=== PATIENT | female | born 1965 ===

== ENCOUNTER 2017-04-16 14:54 | Emergency (ER) | payer MEDICAID ==
[2017-04-16 15:15] VITALS: RESP 18; TEMP 98.3; O2SAT 97
--- NOTE | 2017-04-16 15:38 | C.PDOC ---
History Of Present Illness 51 yr old female with PMHx of HTN, borderline diabetes and depression, presents to the ER with complaints of chronic body pain. Patient states the pain has worsened over the past 3 days. As per patient significant other, the patient is always complaining of pain. Patient also reports of headache. Patient states she takes 2 ibuprofen when she feels the pain, last dose of medication was today at 9am. Patient denies fever, nausea, vomiting or abdominal pain. Time Seen by Provider: 04/16/17 15:05 Chief Complaint (Nursing): Back Pain History Per: Patient History/Exam Limitations: no limitations Onset/Duration Of Symptoms: Persistent (Chronic ), Worse Since (3 days) Past Medical History Reviewed: Historical Data, Nursing Documentation, Vital Signs Vital Signs: Last Vital Signs Temp 98.3 F 04/16/17 15:07 Pulse 92 H 04/16/17 15:07 Resp 18 04/16/17 15:07 BP 131/86 04/16/17 15:07 Pulse Ox 97 04/16/17 15:41 - Medical History PMH: Depression, HTN Family History: States: No Known Family Hx - Social History Hx Alcohol Use: No Hx Substance Use: No - Immunization History Hx Tetanus Toxoid Vaccination: No Hx Influenza Vaccination: Yes Hx Pneumococcal Vaccination: No Review Of Systems Except As Marked, All Systems Reviewed And Found Negative. Constitutional: Positive for: Other ((+) Chronic body pain). Negative for: Fever Gastrointestinal: Negative for: Nausea, Vomiting, Abdominal Pain Neurological: Positive for: Headache Physical Exam - Physical Exam Appears: Non-toxic, No Acute Distress Skin: Warm, Dry Head: Atraumatic, Normacephalic Oral Mucosa: Moist Chest: Symmetrical, No Tenderness Cardiovascular: Rhythm Regular, No Murmur Respiratory: Normal Breath Sounds, No Rales, No Rhonchi, No Stridor, No Wheezing Extremity: Normal ROM, Tenderness (on palpation, diffuse) Pulses: Left Radial: Normal, Right Radial: Normal Neurological/Psych: Oriented x3, Normal Speech, Normal Motor ED Course And Treatment O2 Sat by Pulse Oximetry: 97 (RA) Pulse Ox Interpretation: Normal Medical Decision Making Medical Decision Making: PLAN: * Motrin PO * Tylenol PO Disposition Counseled Patient/Family Regarding: Diagnosis, Need For Followup, Rx Given - Disposition Disposition: HOME/ ROUTINE Disposition Time: 15:57 Condition: STABLE Prescriptions: Ibuprofen [Motrin] 600 mg PO TID #15 tab Instructions: Muscle Spasm (ED) Forms: Gen Discharge Inst Slovak - POA Present On Arrival: None - Clinical Impression Clinical Impression: Chronic pain - Scribe Statement The provider has reviewed the documentation as recorded by the Alexandraibalicia Gonzalez Provider Attestation: All medical record entries made by the Alexandraibalicia were at my direction and personally dictated by me. I have reviewed the chart and agree that the record accurately reflects my personal performance of the history, physical exam, medical decision making, and the department course for this patient. I have also personally directed, reviewed, and agree with the discharge instructions and disposition.
[2017-04-16 16:15] VITALS: BP 128/84; PULSE 80
== END 2017-04-16 16:15 | disposition home or self-care (01) ==
LOC: C.ER 14:54
DX: G89.29 Other chronic pain (principal)

== ENCOUNTER 2017-06-02 10:30 | Emergency (ER) | payer MEDICAID ==
[2017-06-02 10:32] VITALS: BMI 33.3
[2017-06-02 10:36] VITALS: RESP 18; TEMP 98.9; O2SAT 98
--- NOTE | 2017-06-02 11:45 | C.PDOC ---
History Of Present Illness 51 yo female come in for evaluation of left breast pain gradually developed for past 3-4 days. Otherwise, pt denies fever, chills, known direct trauma or injury , headache, dizziness, neck pain, CP, SOB, dyspnea, diaphoresis, palpitation, cough, denies B/L breast skin changes or nipple discharges, denies previous breast pathology. Ambulate to ED for evaluation ,not in any apparent distress. Time Seen by Provider: 06/02/17 11:17 Chief Complaint (Nursing): Breast Problem History Per: Patient Past Medical History Reviewed: Historical Data, Nursing Documentation, Vital Signs Vital Signs: Last Vital Signs Temp 98.9 F 06/02/17 10:33 Pulse 96 H 06/02/17 10:33 Resp 18 06/02/17 10:33 BP 121/88 06/02/17 10:33 Pulse Ox 98 06/02/17 10:33 - Medical History PMH: Depression, HTN Family History: States: No Known Family Hx - Social History Hx Alcohol Use: No Hx Substance Use: No - Immunization History Hx Tetanus Toxoid Vaccination: No Hx Influenza Vaccination: Yes Hx Pneumococcal Vaccination: No Review Of Systems Except As Marked, All Systems Reviewed And Found Negative. Constitutional: Negative for: Fever, Chills Eyes: Negative for: Vision Change ENT: Negative for: Throat Pain, Throat Swelling Cardiovascular: Negative for: Chest Pain, Palpitations Respiratory: Negative for: Cough, Shortness of Breath, Wheezing Gastrointestinal: Negative for: Nausea, Vomiting, Abdominal Pain Musculoskeletal: Positive for: Other (Left breast pain). Negative for: Neck Pain, Back Pain Skin: Negative for: Rash, Bruising Neurological: Negative for: Weakness, Numbness, Altered Mental Status, Headache , Dizziness Physical Exam - Physical Exam Appears: Well, Non-toxic, No Acute Distress Skin: Normal Color, Warm, Dry, No Rash, No Ecchymosis Eye(s): bilateral: PERRL Nose: No Flaring, No Discharge Oral Mucosa: Moist Throat: No Erythema, No Exudate, No Drooling Neck: Supple Cardiovascular: Rhythm Regular Respiratory: No Decreased Breath Sounds, No Accessory Muscle Use, No Stridor, No Wheezing, Other (Left breast: mild reproducible tenderness over posterior sapect at 6 o'clock, no skin changes, no nipple discharges or changes. No erythema, no palpable masses.) Gastrointestinal/Abdominal: Soft, No Tenderness, No Distention, No Guarding Back: No CVA Tenderness Extremity: Normal ROM, No Pedal Edema, No Deformity, No Swelling Neurological/Psych: Oriented x3, Normal Speech ED Course And Treatment O2 Sat by Pulse Oximetry: 98 Pulse Ox Interpretation: Normal Progress Note: On re-evaluation, pt is afebrile, hemodynamicaly stable. non- toxic. PulsEOx 98% RA. ENT: no acute findings. neck: Supple, (-) JVD. Lungs : CTA B/L, BS equal B/L. B/L breast: mild tenderness at 6 o'clock left breast, no skin changes, no erythema, no palpable mass, no nipple changes or discharges. CVS: (+)S1S2, reg. Abd: benign. Pt has clinical findings c/w left breast tenderness. Pt advised to F/u with PMD, NUTRITION PARTNER for mammogramm and further eval and tx of breast pain. Pt understand and agrees with discharges. Disposition Counseled Patient/Family Regarding: Diagnosis, Need For Followup, Rx Given - Disposition Referrals: Clemente Ortega, DHARMESH, [facility] [Advanced Practice Nurse] - Disposition: HOME/ ROUTINE Disposition Time: 11:27 Condition: STABLE Additional Instructions: FOLLOW UP WITH PMD, NUTRITION PARTNER IN 2-3 DAYS FOR RE-EVALUATION AND MAMMOGRAMM SUPPORTING BRA RETURN IF ANY WORSENING OR NEW CHANGES. Prescriptions: Ibuprofen [Motrin Tab] 600 mg PO Q6 #20 tab Instructions: Breast Mass (ED) Print Language: BULGARIAN - Clinical Impression Clinical Impression: Pain of breast
[2017-06-02 12:16] VITALS: BP 120/75; PULSE 85
== END 2017-06-02 12:30 | disposition home or self-care (01) ==
LOC: C.ER 10:30
DX: N64.4 Mastodynia (principal)

== ENCOUNTER 2017-07-27 09:51 | Emergency (ER) | payer MEDICAID ==
[2017-07-27 09:52] VITALS: BMI 33.3
[2017-07-27] MEDS ORDERED: Sodium Chloride 0.9% 1,000 ML IV ONE (10:34)
--- NOTE | 2017-07-27 10:37 | C.PDOC ---
History Of Present Illness 51 year old female, whose PMHx includes Depression, presents to the ED for evaluation of epigastric abdominal pain which began around 1 week ago. Patient states the pain radiates toward her chest. She denies fever, chills, and diarrhea and has no other complaints at this time. Time Seen by Provider: 07/27/17 10:32 Chief Complaint (Nursing): Abdominal Pain History Per: Patient History/Exam Limitations: no limitations Onset/Duration Of Symptoms: Days (1 week) Current Symptoms Are (Timing): Still Present Location Of Pain/Discomfort: Epigastric Radiation Of Pain To:: Chest Quality Of Discomfort: "Pain" Associated Symptoms: denies: Fever, Chills, Diarrhea Additional History Per: Patient Abnormal Vaginal Bleeding: No Past Medical History Reviewed: Historical Data, Nursing Documentation, Vital Signs Vital Signs: Last Vital Signs Temp 98.3 F 07/27/17 12:17 Pulse 77 07/27/17 13:44 Resp 16 07/27/17 13:44 BP 121/85 07/27/17 13:44 Pulse Ox 96 07/27/17 15:30 - Medical History PMH: Depression, HTN Surgical History: No Surg Hx Family History: States: Unknown Family Hx - Social History Hx Alcohol Use: No Hx Substance Use: No - Immunization History Hx Tetanus Toxoid Vaccination: No Hx Influenza Vaccination: Yes Hx Pneumococcal Vaccination: No Review Of Systems Constitutional: Negative for: Fever, Chills Cardiovascular: Positive for: Chest Pain Gastrointestinal: Positive for: Abdominal Pain (epigastric ). Negative for: Diarrhea Physical Exam - Physical Exam Appears: Non-toxic, No Acute Distress Skin: Normal Color, Warm, Dry Head: Atraumatic, Normacephalic Eye(s): bilateral: Normal Inspection Oral Mucosa: Moist Neck: Supple Chest: Symmetrical, No Deformity, No Tenderness Cardiovascular: Rhythm Regular, No Murmur Respiratory: Normal Breath Sounds, No Rales, No Rhonchi, No Wheezing Gastrointestinal/Abdominal: Soft, Tenderness (epigastric ), No Guarding, No Rebound Extremity: Normal ROM, Capillary Refill (less than 2 seconds ) Neurological/Psych: Oriented x3, Normal Speech, Normal Cognition Gait: Steady ED Course And Treatment - Laboratory Results Result Diagrams: 07/27/17 11:13 07/27/17 11:13 ECG: Interpreted By Me, Viewed By Me ECG Rhythm: Sinus Rhythm Interpretation Of ECG: Normal Sinus Rhythm at rate 83bpm. No ST/T wave changes. Rate From EC O2 Sat by Pulse Oximetry: 96 (on RA) Pulse Ox Interpretation: Normal Medical Decision Making Medical Decision Making: ro gastritis pud, pancreatitis, atypical cardiac Progress: Bloodwork, urinalysis, EKG ordered. Protonix IVP, Zofran IVP, and IV Fluids administered. On reassessment, patient is resting comfortably, showing no signs of distress and reports an improvement in her abdominal pain. Patient will be discharged, as per her request. pt with atypical pain. ekg wnl x 1 week pain, trop neg. us neg for gallbladder pathology. no lower abd ttp. strict return precautions advised. Disposition - Disposition Referrals: [facility] [Outside] Darryl Buenrostro MD [Staff Provider] - Nestor Franklin MD [Staff Provider] - Disposition: HOME/ ROUTINE Disposition Time: 15:29 Condition: STABLE Additional Instructions: please follow up with specialist and your doctor. return to er with worsening symptoms or concerns. Prescriptions: Famotidine [Pepcid] 20 mg PO DAILY #20 tab Instructions: Chest Pain (ED), Acute Abdominal Pain (ED) Forms: [employer] (Nepali) - Clinical Impression Clinical Impression: Abdominal pain - Scribe Statement The provider has reviewed the documentation as recorded by the Scribe (Keesha Toro) Provider Attestation: All medical record entries made by the Scribe were at my direction and personally dictated by me. I have reviewed the chart and agree that the record accurately reflects my personal performance of the history, physical exam, medical decision making, and the department course for this patient. I have also personally directed, reviewed, and agree with the discharge instructions and disposition.
[2017-07-27] MEDS ORDERED: Sodium Chloride 0.9% 1,000 ML ONE (10:50)
[2017-07-27 11:17] LABS: BASO # 0.1 K/uL (0.0-0.2); BASO % 0.7 % (0.0-2.0); EOS # 0.1 K/uL (0.0-0.7); EOS % 1.3 % (0.0-4.0); HEMOGLOBIN 13.1 g/dL (11.0-16.0); LYMPH # 1.7 K/uL (1.0-4.3); LYMPH % 16.3 % (20.0-40.0); MEAN CELL VOLUME 85.3 fL (81.0-99.0); MEAN CORPUSCULAR HEMOGLOBIN 28.5 pg (27.0-31.0); MEAN CORPUSCULAR HGB CONC 33.5 g/dL (33.0-37.0); MEAN PLATELET VOLUME 9.8 fL (7.2-11.7); MONO # 0.7 K/uL (0.0-0.8); MONO % 6.6 % (0.0-10.0); NEUT # 7.8 K/uL (1.8-7.0); NEUT % 75.1 % (50.0-75.0); NRBC % 0.1 % (0.0-2.0); RBC 4.58 Mil/uL (3.80-5.20); RED CELL DISTRIBUTION WIDTH 14.8 % (11.5-14.5); WHITE BLOOD COUNT 10.4 K/uL (4.8-10.8)
[2017-07-27 11:23] LABS: HCG,QUALITATIVE URINE NEGATIVE (NEGATIVE)
[2017-07-27 11:25] LABS: PROTHROMBIN TIME 11.7 SECONDS (9.7-12.2)
[2017-07-27 11:27] LABS: SQUAMOUS EPITHIAL 1 /hpf (0-5); URINE BACTERIA RARE (<OCC); URINE BILIRUBIN NEGATIVE (NEGATIVE); URINE BLOOD NEGATIVE (NEGATIVE); URINE CLARITY Clear (Clear); URINE COLOR Straw (YELLOW); URINE GLUCOSE (UA) NORMAL (Normal); URINE LEUKOCYTE ESTERASE NEG Leu/uL (Negative); URINE NITRATE NEGATIVE (NEGATIVE); URINE PROTEIN NEGATIVE (NEGATIVE); URINE UROBILINOGEN NORMAL mg/dL (0.2-1.0)
[2017-07-27 11:38] LABS: ALT/SGPT 52 U/L (9-52); AST/SGOT 27 U/L (14-36); BLOOD UREA NITROGEN 9 mg/dL (7-17); CALCIUM 8.4 mg/dl (8.6-10.4); GFR AFRICAN-AMERICAN > 60; GFR NON-AFRICAN AMERICAN > 60; LIPASE 85 U/L (23-300)
[2017-07-27 12:18] VITALS: TEMP 98.3
--- NOTE | 2017-07-27 12:48 | RAD ---
HISTORY: abd pain COMPARISON: None available. TECHNIQUE: Chest PA and lateral FINDINGS: Examination limited by habitus. LUNGS: No focal consolidation. Please note that chest x-ray has limited sensitivity for the detection of pulmonary masses. PLEURA: No significant pleural effusion identified. No definite pneumothorax . CARDIOVASCULAR: The cardiomediastinal silhouette appears within normal limits of size. OSSEOUS STRUCTURES: No acute osseous abnormality identified. VISUALIZED UPPER ABDOMEN: Unremarkable. OTHER FINDINGS: None. IMPRESSION: No focal consolidation, significant pleural effusion, or definite pneumothorax identified.
--- NOTE | 2017-07-27 13:14 | US ---
HISTORY: upper abd pain COMPARISON: None available. TECHNIQUE: Sonographic evaluation of the abdomen. FINDINGS: LIVER: Measures 20.0 cm in sagittal dimension. Echogenic liver may be seen in setting of hepatic parenchymal disease or fatty infiltration. No focal hepatic mass identified. The main portal vein appears patent with normal directional flow. No intrahepatic bile duct dilatation. GALLBLADDER: No gallstones. No gallbladder wall thickening. Negative sonographic Rodríguez's sign as assessed by the client relations specialist. COMMON BILE DUCT: Measures 3 mm. PANCREAS: Not well visualized. RIGHT KIDNEY: Measures 11.7 x 3.8 x 4.3cm. No obstructing calculus or hydronephrosis identified. LEFT KIDNEY: Measures 11.5 x 5.4 x 5.9 cm. No obstructing calculus or hydronephrosis identified. SPLEEN: Measures approximately 9.2 cm AORTA: Limited views appear unremarkable. IVC: Limited views appear unremarkable. OTHER FINDINGS: None. IMPRESSION: Hepatomegaly. Echogenic liver may be seen in setting of hepatic parenchymal disease or fatty infiltration.
[2017-07-27 13:44] VITALS: BP 121/85; PULSE 77; RESP 16
[2017-07-27 14:35] VITALS: O2SAT 96
--- NOTE | 2017-07-29 23:18 | CARD ---
APPROVED REPORT EKG Measurement Heart [id number] <Conclusion> Normal sinus rhythm Normal ECG
== END 2017-07-27 14:07 | disposition home or self-care (01) ==
LOC: C.ER 09:51
DX: R10.9 Unspecified abdominal pain (principal); I10 Essential (primary) hypertension
CPT/HCPCS: 71046; 76700; 80053; 81001; 83690; 84484; 84703; 85025; 85610; 85730; 96374; 96375; 99285; C9113; J2405; J7040

== ENCOUNTER 2017-12-07 00:01 | Emergency (ER) | payer MEDICAID ==
[2017-12-07 00:01] VITALS: BMI 33.3
[2017-12-07 00:28] VITALS: O2SAT 97
[2017-12-07] MEDS ORDERED: Sodium Chloride 0.9% 1,000 ML IV ONE (00:42)
--- NOTE | 2017-12-07 00:44 | C.PDOC ---
History Of Present Illness 52 year old female presents to the ED for evaluation of chest pain. Patient had episodes of vomiting in the ED. She denies fever, chills. Chief Complaint (Nursing): Chest Pain History Per: Patient History/Exam Limitations: no limitations Onset/Duration Of Symptoms: Hrs Current Symptoms Are (Timing): Still Present Quality: "Pain" Additional History Per: Patient Past Medical History Reviewed: Historical Data, Nursing Documentation, Vital Signs Vital Signs: Last Vital Signs Temp 97.6 F 12/07/17 03:08 Pulse 79 12/07/17 03:08 Resp 18 12/07/17 03:08 BP 126/78 12/07/17 03:08 Pulse Ox 97 12/07/17 03:27 - Medical History PMH: Depression, HTN Surgical History: No Surg Hx Family History: States: Unknown Family Hx - Social History Hx Alcohol Use: No Hx Substance Use: No - Immunization History Hx Tetanus Toxoid Vaccination: No Hx Influenza Vaccination: Yes Hx Pneumococcal Vaccination: No Review Of Systems Constitutional: Negative for: Fever, Chills Cardiovascular: Positive for: Chest Pain Gastrointestinal: Positive for: Vomiting Physical Exam - Physical Exam Appears: Non-toxic, Other (in distress due to vomiting ) Skin: Normal Color, Warm, Dry Head: Atraumatic, Normacephalic Eye(s): bilateral: Normal Inspection Oral Mucosa: Moist Neck: Supple Chest: Symmetrical, No Deformity, No Tenderness Cardiovascular: Rhythm Regular, No Murmur Respiratory: Normal Breath Sounds, No Rales, No Rhonchi, No Wheezing Gastrointestinal/Abdominal: Soft, Tenderness (epigastric and right upper quadrant ), No Guarding, No Rebound Extremity: Normal ROM, Capillary Refill (less than 2 seconds ) Neurological/Psych: Oriented x3, Normal Speech, Normal Cognition ED Course And Treatment - Laboratory Results Result Diagrams: 12/07/17 00:58 12/07/17 00:58 ECG: Interpreted By Me, Viewed By Me ECG Rhythm: Sinus Rhythm, Nonspecific Changes ECG Interpretation: No Acute Changes, Abnormal Interpretation Of ECG: NSR, non-spc-T wave changes. Rate From EC O2 Sat by Pulse Oximetry: 97 (on RA) Pulse Ox Interpretation: Normal Progress Note: Bloodwork, UA, CT A/P, EKG ordered. Protonix IVP, Reglan IV and IV Fluids administered. Disposition Counseled Patient/Family Regarding: Diagnosis - Disposition Referrals: Clemente Ortega, DHARMESH, [facility] [employer] [Family Provider] - Disposition: HOME/ ROUTINE Disposition Time: 05:44 Condition: STABLE Prescriptions: Famotidine [Pepcid] 20 mg PO BID #20 tab Instructions: Gastritis, Nausea and Vomiting, Adult (DC), Alcohol Poisoning (DC ) Forms: [employer] (Georgian), Gen Discharge Inst Irish - POA Present On Arrival: None - Clinical Impression Clinical Impression: Gastritis, Alcohol abuse - Scribe Statement The provider has reviewed the documentation as recorded by the Scribe (Keesha Toro) Provider Attestation: All medical record entries made by the Scribe were at my direction and personally dictated by me. I have reviewed the chart and agree that the record accurately reflects my personal performance of the history, physical exam, medical decision making, and the department course for this patient. I have also personally directed, reviewed, and agree with the discharge instructions and disposition.
[2017-12-07] MEDS ORDERED: Sodium Chloride 0.9% 0 ML ONE (00:56)
[2017-12-07 01:01] LABS: BASO # 0.1 K/uL (0.0-0.2); BASO % 0.5 % (0.0-2.0); EOS % 0.2 % (0.0-4.0); HEMOGLOBIN 12.5 g/dL (11.0-16.0); LYMPH # 2.1 K/uL (1.0-4.3); LYMPH % 15.8 % (20.0-40.0); MEAN CORPUSCULAR HEMOGLOBIN 28.1 pg (27.0-31.0); MEAN CORPUSCULAR HGB CONC 33.5 g/dL (33.0-37.0); MEAN PLATELET VOLUME 9.8 fL (7.2-11.7); MONO # 0.9 K/uL (0.0-0.8); NEUT # 10.3 K/uL (1.8-7.0); NEUT % 76.5 % (50.0-75.0); RBC 4.45 Mil/uL (3.80-5.20); RED CELL DISTRIBUTION WIDTH 14.5 % (11.5-14.5); WHITE BLOOD COUNT 13.5 K/uL (4.8-10.8)
[2017-12-07] MEDS ORDERED: Sodium Chloride 0.9% 1,000 ML ONE (01:08)
[2017-12-07 01:14] LABS: ALB/GLOB RATIO 1.1 (1.0-2.1); ALBUMIN 4.3 g/dL (3.5-5.0); ALT/SGPT 60 U/L (9-52); AST/SGOT 41 U/L (14-36); BLOOD UREA NITROGEN 7 mg/dL (7-17); CALCIUM 8.9 mg/dl (8.6-10.4); GFR AFRICAN-AMERICAN > 60; GFR NON-AFRICAN AMERICAN > 60; LIPASE 80 U/L (23-300)
[2017-12-07] MEDS ORDERED: Iodixanol 320 MG/ML 100 ML BOTTLE IV ONE (01:50)
[2017-12-07 03:36] LABS: URINE BILIRUBIN NEGATIVE (NEGATIVE); URINE BLOOD NEGATIVE (NEGATIVE); URINE CLARITY Clear (Clear); URINE COLOR Colorless (YELLOW); URINE GLUCOSE (UA) NORMAL (Normal); URINE LEUKOCYTE ESTERASE NEG Leu/uL (Negative); URINE PROTEIN NEGATIVE (NEGATIVE); URINE UROBILINOGEN NORMAL mg/dL (0.2-1.0)
--- NOTE | 2017-12-07 04:09 | CT ---
EXAM: CT Abdomen and Pelvis With Intravenous Contrast CLINICAL HISTORY: 52 years old, female; Pain; Abdominal pain; Additional info: Upper abd pain/ vomiting TECHNIQUE: Axial computed tomography images of the abdomen and pelvis with intravenous contrast. All CT scans at this facility use one or more dose reduction techniques, viz.: automated exposure control; ma/kV adjustment per patient size (including targeted exams where dose is matched to indication; i.e. head); or iterative reconstruction technique. Coronal and sagittal reformatted images were created and reviewed. CONTRAST: 100 mL of [id number] administered intravenously. COMPARISON: No relevant prior studies available. FINDINGS: Lung bases: Unremarkable. No mass. No consolidation. Pleural space: Small bilateral pleural effusions. Mediastinum: A small hiatal hernia is present. ABDOMEN: Liver: There is a diffuse decrease in hepatic parenchymal density, consistent with fatty infiltration. Mildly enlarged liver measuring 22.6 cm. Gallbladder and bile ducts: Unremarkable. No calcified stones. No ductal dilation. Pancreas: Unremarkable. No mass. No ductal dilation. Spleen: Unremarkable. No splenomegaly. Adrenals: Unremarkable. No mass. Kidneys and ureters: Mild fullness of the collecting system bilaterally. No hydroureter or distal ureteral stone. Bilateral symmetric renal enhancement. There is a 1.4 cm cyst in the upper pole of the right kidney. No solid mass. No hydronephrosis. Stomach and bowel: Unremarkable. No obstruction. No mucosal thickening. PELVIS: Appendix: No findings to suggest acute appendicitis. Bladder: Unremarkable. No mass. Reproductive: Unremarkable as visualized. ABDOMEN and PELVIS: Intraperitoneal space: Unremarkable. No free air. No significant fluid collection. Bones/joints: No acute fracture. No dislocation. Soft tissues: Unremarkable. Vasculature: Unremarkable. No abdominal aortic aneurysm. Lymph nodes: Unremarkable. No enlarged lymph nodes. IMPRESSION: Mild hepatomegaly and fatty liver. Mild fullness of the collecting system bilaterally without hydroureter or distal ureteral stone. Right renal cyst. No followup necessary. Small hiatal hernia. Mild bilateral pleural effusions.
--- NOTE | 2017-12-07 05:15 | CT ---
EXAM: CT Chest Without Intravenous Contrast CLINICAL HISTORY: 52 years old, female; Pain; Chest pain; Additional info: Pleural effusion TECHNIQUE: Axial computed tomography images of the chest without intravenous contrast. All CT scans at this facility use one or more dose reduction techniques, viz.: automated exposure control; ma/kV adjustment per patient size (including targeted exams where dose is matched to indication; i.e. head); or iterative reconstruction technique. Coronal and sagittal reformatted images were created and reviewed. COMPARISON: No relevant prior studies available. FINDINGS: Lungs: Unremarkable. No mass. No consolidation. Pleural space: Unremarkable. No pneumothorax. No significant effusion. Heart: Unremarkable. No cardiomegaly. No significant pericardial effusion. Bones/joints: Unremarkable. No acute fracture. No dislocation. Soft tissues: Unremarkable. Vasculature: Unremarkable. No thoracic aortic aneurysm. Lymph nodes: Unremarkable. No enlarged lymph nodes. Liver: There is a diffuse decrease in hepatic parenchymal density, consistent with fatty infiltration. IMPRESSION: No acute intrathoracic findings. No significant pleural effusion. Fatty liver.
[2017-12-07 06:11] VITALS: BP 157/90; PULSE 89; RESP 16; TEMP 98.5
--- NOTE | 2017-12-08 12:24 | CARD ---
APPROVED REPORT EKG Measurement Heart [id number] <Conclusion> Normal sinus rhythm Nonspecific T wave abnormality Prolonged QT Abnormal ECG
== END 2017-12-07 06:14 | disposition home or self-care (01) ==
LOC: C.ER 00:01 → SUPCPDRO 00:01 → C.ER 06:14
DX: K29.70 Gastritis, unspecified, without bleeding (principal); F10.10 Alcohol abuse, uncomplicated; Y90.4 Blood alcohol level of 80-99 mg/100 ml
CPT/HCPCS: 71250; 74177; 80053; 80320; 81001; 83690; 83880; 84484; 85025; 93005; 96374; 96375; 99285; C9113; J2765; J7040; Q9967

== ENCOUNTER 2018-01-18 16:10 | Emergency (ER) | payer MEDICAID ==
[2018-01-18 16:11] VITALS: BMI 33.3
[2018-01-18 16:22] VITALS: TEMP 98.3; O2SAT 98
[2018-01-18] MEDS ORDERED: DiphenhydrAMINE 50 mg/ml Inj IVP STA (17:07)
[2018-01-18] MEDS ORDERED: DiphenhydrAMINE 50 mg/ml Inj ONE (17:22)
[2018-01-18 17:26] LABS: BASO # 0.1 K/uL (0.0-0.2); BASO % 0.6 % (0.0-2.0); EOS # 0.1 K/uL (0.0-0.7); EOS % 1.1 % (0.0-4.0); HEMOGLOBIN 12.5 g/dL (11.0-16.0); LYMPH # 2.5 K/uL (1.0-4.3); LYMPH % 22.9 % (20.0-40.0); MEAN CELL VOLUME 84.5 fL (81.0-99.0); MEAN CORPUSCULAR HEMOGLOBIN 27.8 pg (27.0-31.0); MEAN CORPUSCULAR HGB CONC 32.9 g/dL (33.0-37.0); MONO # 0.9 K/uL (0.0-0.8); MONO % 8.3 % (0.0-10.0); NEUT # 7.4 K/uL (1.8-7.0); NEUT % 67.1 % (50.0-75.0); RBC 4.51 Mil/uL (3.80-5.20); RED CELL DISTRIBUTION WIDTH 15.5 % (11.5-14.5)
--- NOTE | 2018-01-18 17:38 | RAD ---
PROCEDURE: CHEST RADIOGRAPH, 1 VIEW HISTORY: chest pain/breast pain COMPARISON: Chest radiographs 07/27/2017. FINDINGS: LUNGS: Poor sorry Afrin. Repeat chest radiograph is recommended. The bronchovascular markings are carotid and although there is no overt alveolar disease appreciable. Underlying interstitial changes not completely exclude the medial mid to inferior lung zones bilaterally. PLEURA: No pneumothorax or pleural fluid seen. CARDIOVASCULAR: Cardiac silhouette appears stable but is limited by frontal technique. OSSEOUS STRUCTURES: No significant abnormalities. VISUALIZED UPPER ABDOMEN: Normal. OTHER FINDINGS: None. IMPRESSION: Limited history effort crowds the bronchovascular markings with underlying potential interstitial pulmonary changes not completely excluded. No alveolitis. No cardiovascular pathology evident acutely. Consider repeat chest radiograph at better suspended inspiratory volume.
--- NOTE | 2018-01-18 17:38 | C.PDOC ---
History Of Present Illness <Nida Zapien - Last Filed: 01/18/18 19:00> <Mychal Mitchell - Last Filed: 01/18/18 22:05> Patient with psych history presents to ED with c/o "weird sensation" to breast for 1 year after she started her HTN and Psych medication. [facility], was told she did not have anything and "it was all on her mind". No other complaints at this time. (Nida Zapien) History Per: Patient History/Exam Limitations: no limitations Onset/Duration Of Symptoms: Days Current Symptoms Are (Timing): Still Present <Nida Zapien - Last Filed: 01/18/18 19:00> <Mychal Mitchell - Last Filed: 01/18/18 22:05> Time Seen by Provider: 01/18/18 16:44 Chief Complaint (Nursing): Abdominal Pain Past Medical History Reviewed: Historical Data, Nursing Documentation, Vital Signs - Medical History PMH: Depression, HTN Surgical History: No Surg Hx Family History: States: No Known Family Hx - Social History Hx Alcohol Use: No Hx Substance Use: No - Immunization History Hx Tetanus Toxoid Vaccination: No Hx Influenza Vaccination: Yes Hx Pneumococcal Vaccination: No <Nida Zapien - Last Filed: 01/18/18 19:00> Vital Signs: Last Vital Signs Temp 98.3 F 01/18/18 16:19 Pulse 110 H 01/18/18 16:19 Resp 18 01/18/18 16:19 BP 140/84 01/18/18 16:19 Pulse Ox 98 01/18/18 19:01 Review Of Systems Constitutional: Negative for: Fever, Chills Cardiovascular: Negative for: Chest Pain Respiratory: Negative for: Shortness of Breath Gastrointestinal: Negative for: Nausea, Vomiting Musculoskeletal: Positive for: Other (breast pain) Skin: Negative for: Rash <Nida Zapien - Last Filed: 01/18/18 19:00> Physical Exam - Physical Exam Appears: Non-toxic, No Acute Distress Skin: Warm, Dry, No Rash Head: Atraumatic, Normacephalic Eye(s): bilateral: Normal Inspection Oral Mucosa: Moist Neck: Normal ROM, Supple Cardiovascular: Rhythm Regular Respiratory: Normal Breath Sounds, No Rales, No Rhonchi, No Wheezing Gastrointestinal/Abdominal: Soft, No Tenderness, No Guarding, No Rebound Extremity: Normal ROM, Capillary Refill (<2 seconds) Neurological/Psych: Oriented x3, Normal Speech <Nida Zapien - Last Filed: 01/18/18 19:00> ED Course And Treatment - Laboratory Results Result Diagrams: 01/18/18 17:19 01/18/18 17:19 O2 Sat by Pulse Oximetry: 98 (RA) Pulse Ox Interpretation: Normal <Nida Zapien - Last Filed: 01/18/18 19:00> - Laboratory Results Result Diagrams: 01/18/18 17:19 01/18/18 17:19 ECG: Interpreted By Me, Viewed By Me ECG Rhythm: Sinus Rhythm, ST/T Changes ECG Interpretation: No Acute Changes, Abnormal Interpretation Of ECG: NSR, nonspc ST-T changes, abnormal tracings. Rate From EC <Mychal Mitchell - Last Filed: 01/18/18 22:05> Medical Decision Making <Nida Zapien - Last Filed: 01/18/18 19:00> <Mychal Mitchell - Last Filed: 01/18/18 22:05> Medical Decision Making: Patient has had 2 episodes of vomiting in the ED. Ultrasound of the abdomen ordered. (Nida Zapien) Disposition - Disposition Disposition Time: 19:00 - POA Present On Arrival: None <Nida Zapien - Last Filed: 01/18/18 19:00> <Mychal Mitchell - Last Filed: 01/18/18 22:05> - Disposition Condition: STABLE Forms: [employer] (Dutch) - Clinical Impression Clinical Impression: Pain of breast, Vomiting - PA / [employer]ORK [employer] / Resident Statement MD/DO has reviewed & agrees with the documentation as recorded. - Scribe Statement The provider has reviewed the documentation as recorded by the Scribe <Nida Zapien - Last Filed: 01/18/18 19:00> <Mychal Mitchell - Last Filed: 01/18/18 22:05> - Scribe Statement Tiffany Chambers All medical record entries made by the Scribe were at my direction and personally dictated by me. I have reviewed the chart and agree that the record accurately reflects my personal performance of the history, physical exam, medical decision making, and the department course for this patient. I have also personally directed, reviewed, and agree with the discharge instructions and disposition. (Nida Zapien) Physician Patient Turnover Patient Signed Over To: Mychal Mitchell Handoff Comments: Pending ultrasound <Nida Zapien - Last Filed: 01/18/18 19:00>
[2018-01-18 17:41] LABS: ALB/GLOB RATIO 1.2 (1.0-2.1); ALBUMIN 4.4 g/dL (3.5-5.0); AST/SGOT 46 U/L (14-36); BLOOD UREA NITROGEN 9 mg/dL (7-17); GFR AFRICAN-AMERICAN > 60; GFR NON-AFRICAN AMERICAN > 60
[2018-01-18 17:53] LABS: ALT/SGPT 79 U/L (9-52); CALCIUM 9.2 mg/dl (8.6-10.4)
[2018-01-18] MEDS ORDERED: Belladonna-Phenobarbital PO STA (17:56)
[2018-01-18] MEDS ORDERED: Aluminum Hydroxide/Magnesium Hydroxide Susp (30 mL) PO STA (17:57)
[2018-01-18] MEDS ORDERED: Aluminum Hydroxide/Magnesium Hydroxide Susp (30 mL) ONE (18:06)
[2018-01-18] MEDS ORDERED: Belladonna-Phenobarbital ONE (18:06)
[2018-01-18] MEDS ORDERED: Potassium Chloride 20 mEq/15 ml LIQ UD PO STA (19:31)
[2018-01-18] MEDS ORDERED: Potassium Chloride 20 mEq/15 ml LIQ UD ONE (19:45)
[2018-01-18 22:40] VITALS: BP 120/84; PULSE 93; RESP 20
--- NOTE | 2018-01-19 07:35 | US ---
HISTORY: ruq/ epigastric abd pain COMPARISON: CT abdomen pelvis 12/07/2017 TECHNIQUE: Sonographic evaluation of the right upper quadrant abdomen. FINDINGS: LIVER: Liver demonstrates increased echogenicity, likely representing hepatic parenchymal disease or fatty infiltration. This limits evaluation for small masses. No focal large liver mass is identified. Small area of focal fatty sparing adjacent to the gallbladder fossa. No intrahepatic biliary ductal dilatation is identified. Portal vein is patent with normal hepatopetal flow. GALLBLADDER: The gallbladder is physiologically distended. No gallstones, gallbladder wall thickening, or pericholecystic fluid is identified.No sonographic Rodríguez's sign was appreciated during the exam. COMMON BILE DUCT: Normal in caliber measuring 0.4 cm. PANCREAS: The visualized portions are unremarkable in echogenicity. The remainder of the pancreas is obscured by bowel gas. RIGHT KIDNEY: Measures 11cm. Unremarkable in echogenicity. No shadowing renal stone, cyst, or hydronephrosis is identified AORTA: No aneurysmal dilatation of the visualized portions. IVC: Visualized portions are unremarkable.. OTHER FINDINGS: None. IMPRESSION: Echogenic liver, likely representing fatty infiltration or hepatic parenchymal disease. Preliminary impression was provided by [facility]. Findings are concordant.
--- NOTE | 2018-01-19 23:22 | CARD ---
APPROVED REPORT EKG Measurement Heart [id number] ID [id number] <Conclusion> Normal sinus rhythm Nonspecific T wave abnormality Abnormal ECG
== END 2018-01-18 22:39 | disposition home or self-care (01) ==
LOC: C.ER 16:10
DX: N64.4 Mastodynia (principal); R11.10 Vomiting, unspecified; I10 Essential (primary) hypertension
CPT/HCPCS: 71045; 76705; 80053; 83690; 85025; 93005; 96374; 96375; 99284; J1200; J1885; J2060; J2405

== ENCOUNTER 2018-01-21 21:21 | Emergency (ER) | payer MEDICAID ==
[2018-01-21 21:22] VITALS: BMI 33.3
[2018-01-21 21:30] VITALS: BP 155/95; PULSE 100; RESP 22; TEMP 98.3; O2SAT 96
--- NOTE | 2018-01-21 21:40 | C.PDOC ---
Time Seen by Provider: 01/21/18 21:31 Chief Complaint (Nursing): Psychiatric Evaluation Past Medical History Vital Signs: Last Vital Signs Temp 98.3 F 01/21/18 21:24 Pulse 100 H 01/21/18 21:24 Resp 22 01/21/18 21:24 BP 155/95 H 01/21/18 21:24 Pulse Ox 96 01/21/18 21:24 - Medical History PMH: Depression, HTN Family History: States: Unknown Family Hx - Social History Hx Alcohol Use: No Hx Substance Use: No - Immunization History Hx Tetanus Toxoid Vaccination: No Hx Influenza Vaccination: Yes Hx Pneumococcal Vaccination: No ED Course And Treatment O2 Sat by Pulse Oximetry: 96 Medical Decision Making Medical Decision Making: pt very manipulative and splitting different providers. cannot be seen by HER psychiatrist (@ [facility] [place]) until tomorrow pt SAME presentation as 2 days ago and again does not warrant re-eval nor admission d/w pt and daughter @ bedside and Crisis Oncologist Manjula, both will help pt to f/u @ [facility] [place] tomorrow AM Disposition Doctor Will See Patient In The: Office Counseled Patient/Family Regarding: Studies Performed, Diagnosis - Disposition Disposition: HOME/ ROUTINE Disposition Time: 21:39 Condition: GOOD - Clinical Impression Clinical Impression: Schizophrenia
== END 2018-01-21 21:46 | disposition home or self-care (01) ==
LOC: C.ER 21:21
DX: F20.9 Schizophrenia, unspecified (principal)

== ENCOUNTER 2018-02-17 09:25 | Inpatient (IN) | payer MEDICAID ==
[2018-02-17 09:25] VITALS: BMI 33.3
[2018-02-17 10:02] LABS: BASO # 0.1 K/uL (0.0-0.2); BASO % 1.2 % (0.0-2.0); EOS # 0.2 K/uL (0.0-0.7); EOS % 1.6 % (0.0-4.0); HEMOGLOBIN 12.1 g/dL (11.0-16.0); LYMPH # 2.4 K/uL (1.0-4.3); LYMPH % 23.2 % (20.0-40.0); MEAN CELL VOLUME 85.2 fL (81.0-99.0); MEAN CORPUSCULAR HEMOGLOBIN 28.1 pg (27.0-31.0); MEAN PLATELET VOLUME 9.2 fL (7.2-11.7); MONO # 0.8 K/uL (0.0-0.8); MONO % 7.7 % (0.0-10.0); NEUT # 6.8 K/uL (1.8-7.0); NEUT % 66.3 % (50.0-75.0); RBC 4.33 Mil/uL (3.80-5.20); RED CELL DISTRIBUTION WIDTH 15.8 % (11.5-14.5); WHITE BLOOD COUNT 10.3 K/uL (4.8-10.8)
[2018-02-17] MEDS ORDERED: Vancomycin 1 GM 1 GM/250 ML BAG IV STA (10:20)
[2018-02-17] MEDS ORDERED: Cefepime IV 1 gm in Dextrose 1 GM/50 ML BAG IVPB STA (10:21)
[2018-02-17 10:24] LABS: ALB/GLOB RATIO 1.1 (1.0-2.1); ALBUMIN 4.1 g/dL (3.5-5.0); ALT/SGPT 92 U/L (9-52); AST/SGOT 51 U/L (14-36); BLOOD UREA NITROGEN 10 mg/dL (7-17); CALCIUM 9.1 mg/dl (8.6-10.4); GFR AFRICAN-AMERICAN > 60; GFR NON-AFRICAN AMERICAN > 60
[2018-02-17 10:35] LABS: VENOUS BLOOD GAS PCO2 44 mmHg (40-60); VENOUS BLOOD GAS PO2 37 mm/Hg (30-55)
[2018-02-17 10:47] LABS: INR 1.1; PROTHROMBIN TIME 11.9 SECONDS (9.7-12.2)
--- NOTE | 2018-02-17 10:47 | C.PDOC ---
History Of Present Illness 52 year old female patient sent by her PMD for failed outpatient treatment. Patient has been experiencing redness in her B/L LEs, states they feel hot and itchy. She has been taking PO antibiotics given to her by PMD (name unknown) without relief of symptoms. Patient denies leg pain, chest pain, SOB, palpitations, fever, wounds/insect bites. PMHx of HTN, depression Time Seen by Provider: 02/17/18 09:32 Chief Complaint (Nursing): Lower Extremity Problem/Injury History Per: Patient History/Exam Limitations: no limitations Onset/Duration Of Symptoms: Days ([id number]) Current Symptoms Are (Timing): Still Present Severity: Moderate Past Medical History Reviewed: Historical Data, Nursing Documentation, Vital Signs Vital Signs: Last Vital Signs Temp 97.9 F 02/21/18 08:25 Pulse 103 H 02/21/18 08:25 Resp 103 H 02/21/18 08:25 BP 137/92 H 02/21/18 08:25 Pulse Ox 91 L 02/21/18 08:25 - Medical History PMH: Depression, HTN Family History: States: No Known Family Hx - Social History Hx Alcohol Use: No Hx Substance Use: No - Immunization History Hx Tetanus Toxoid Vaccination: No Hx Influenza Vaccination: Yes Hx Pneumococcal Vaccination: No Review Of Systems Constitutional: Negative for: Fever Cardiovascular: Negative for: Chest Pain, Palpitations Respiratory: Negative for: Cough, Shortness of Breath Gastrointestinal: Negative for: Abdominal Pain Genitourinary: Negative for: Dysuria, Hematuria Musculoskeletal: Positive for: Other (red, hot, itchy bilateral legs). Negative for: Leg Pain Neurological: Negative for: Headache, Dizziness Physical Exam - Physical Exam Appears: Well, Non-toxic, No Acute Distress Skin: Warm, Dry, Other (see extremity exam) Head: Normacephalic Eye(s): bilateral: Normal Inspection Oral Mucosa: Moist Neck: Supple Cardiovascular: Rhythm Regular (mildly tachycardic) Respiratory: Normal Breath Sounds, No Rales, No Rhonchi, No Wheezing Gastrointestinal/Abdominal: Normal Exam, Bowel Sounds, Soft, No Tenderness Extremity: Normal ROM (x4), No Tenderness, No Pedal Edema, No Calf Tenderness, Capillary Refill (<2 sec all digits ), No Deformity, Other (bilateral mild erythema in legs greatest in calves; Anterior: mild petechiae B/L ) Pulses: Left Dorsalis Pedis: Normal, Right Dorsalis Pedis: Normal Neurological/Psych: Oriented x3, Normal Sensation Gait: Steady ED Course And Treatment - Laboratory Results Result Diagrams: 02/21/18 08:07 02/21/18 08:07 O2 Sat by Pulse Oximetry: 99 (RA) Pulse Ox Interpretation: Normal Progress Note: Blood work, venous dopplers ordered and reviewed. Patient given dose of IV Vancomycin and IV Cefepime in ED. - Physician Consult Information Physician Contacted: Mily Khan Outcome Of Conversation: Discussed patient with PMD, agrees with admission for B /L leg erythema (cellulitis vs vasculitis?), failed outpatient treatment. Disposition - Disposition Disposition: HOSPITALIZED Disposition Time: 11:36 Condition: STABLE - Clinical Impression Clinical Impression: Leg erythema, Cellulitis, Failure of outpatient treatment, Petechiae - Scribe Statement The provider has reviewed the documentation as recorded by the Katiana Schneider Do Provider Attestation: All medical record entries made by the Scribe were at my direction and personally dictated by me. I have reviewed the chart and agree that the record accurately reflects my personal performance of the history, physical exam, medical decision making, and the department course for this patient. I have also personally directed, reviewed, and agree with the discharge instructions and disposition. Decision To Admit - Pt Status Changed To: Hospital Disposition Of: Inpatient - Admit Certification Admit to Inpatient:: After my assessment, the patient will require hospitalization for at least two midnights. This is because of the severity of symptoms shown, intensity of services needed, and/or the medical risk in this patient being treated as an outpatient. - InPatient: Physician Admission Certification: I certify that this patient requires 2 or more midnights of care for the following reason:: see notes - . Bed Request Type: Regular Admitting Physician: Mily Khan Patient Diagnosis: Leg erythema, Cellulitis, Failure of outpatient treatment
[2018-02-17] MEDS ORDERED: Vancomycin 1 gm/NS 200 ml 1 GM/200 ML BAG IVPB ONE (12:00)
--- NOTE | 2018-02-17 14:45 | CP.PCM.PN ---
Subjective - Date & Time of Evaluation Date of Evaluation: 02/17/18 Time of Evaluation: 13:00 - Subjective Subjective: PGY2 Progress Note for Dr. Khan Patient is a 52 year old F with PMHx of Schizophrenia, HTN, IGT, depression, anxiety who presents today for lower extremity swelling and itching for two weeks. Patient denies any pain in her legs. Patient does not know of any inciting events and denies any trauma, bites, or falls. Patient was placed on antibiotics by her PMD Dr. Khan which only minimally helped the swelling. Patient does not know what medications she takes, but does know she gets them from [facility] [place] [facility]. Patient denies any chest pain, shortness of breath, abdominal pain, nausea, vomiting, constipation, or diarrhea. Allergies: NKDA PMHx: Schizophrenia, HTN, IGT, depression, anxiety Psurg: C-sections x 2 (1988, 1990) Famhx: Mom: Alzheimer's, Sister: bipolar depression Social hx: denies tobacco, alcohol, drugs. lives with . Objective - Vital Signs/Intake and Output Vital Signs (last 24 hours): Temp Pulse Resp BP Pulse Ox 97.6 F 97 H 20 131/86 96 02/17/18 12:35 02/17/18 12:35 02/17/18 12:35 02/17/18 12:35 02/17/18 12:35 - Medications Medications: Current Medications Benztropine Mesylate (Cogentin) 0.5 mg PO BID [facility] Bupropion HCl (Wellbutrin Xl) 150 mg PO DAILY [facility] Heparin Sodium (Porcine) (Heparin) 5,000 units SC Q8 [facility] Cefazolin Sodium/Dextrose (Ancef Iv 2 Gm Duplex) 2 gm in 50 mls @ 100 mls/hr IVPB Q8H [facility] PRN Reason: Protocol Pantoprazole Sodium (Protonix Ec Tab) 40 mg PO DAILY [facility] Risperidone (Risperdal Tab) 2 mg PO HS [facility] - Labs Labs: 02/17/18 09:59 02/17/18 09:59 PT 11.9 SECONDS (9.7-12.2) 02/17/18 10:27 INR 1.1 02/17/18 10:27 APTT 35 SECONDS (21-34) H 02/17/18 10:27 - Constitutional Appears: Non-toxic, No Acute Distress - Head Exam Head Exam: ATRAUMATIC, NORMAL INSPECTION, NORMOCEPHALIC - Eye Exam Eye Exam: EOMI, Normal appearance - ENT Exam ENT Exam: Mucous Membranes Moist - Respiratory Exam Respiratory Exam: Clear to Ausculation Bilateral, NORMAL BREATHING PATTERN. absent: Rales, Rhonchi, Wheezes, Respiratory Distress, Stridor - Cardiovascular Exam Cardiovascular Exam: REGULAR RHYTHM, RRR, +S1, +S2 - GI/Abdominal Exam GI & Abdominal Exam: Soft, Normal Bowel Sounds. absent: Tenderness - Extremities Exam Extremities Exam: Full ROM, Pedal Edema (1+ pitting edema b/l) - Neurological Exam Neurological Exam: Alert, Awake, Oriented x3 - Psychiatric Exam Psychiatric exam: Flat Affect, Normal Mood - Skin Skin Exam: Erythema, Warm Assessment and Plan - Assessment and Plan (Free Text) Assessment: Bilateral LE Cellulitis failed outpatient therapy Ancef 1g q8h cellulitic changes outlined, monitor progress f/u blood cultures Schizophrenia Risperidone 2mg po HS Cogentin .5mg po BID Depression Wellbutrin Xl 150mg po daily IGT f/u HgA1C f/u lipid panel HTN not currently on any medications as per pharmacy will monitor Prophylaxis Protonix 40mg po daily Heparin 5000u sc q8h no scds due to LE edema Management as per Dr. Khan
--- NOTE | 2018-02-17 15:30 | CP.PCM.CON ---
History of Present Illness - History of Present Illness History of Present Illness: 52 year old female patient sent by their PMD for failed outpatient care. Patient received abx for her leg cellulitis which did not bring relief. For 2 weeks, patient has been experiencing bilateral legs redness that feels hot and itchy. Patient denies leg pain, chest pain, SOB, and fever. - Medical History PMH: Depression, HTN Family History: States: Unknown Family Hx Review of Systems - Review of Systems All systems: reviewed and no additional remarkable complaints except - Constitutional Constitutional: absent: As Per HPI, Anorexia, Chills, Daytime Sleepiness, Excessive Sweating, Fatigue, Fever, Frequent Falls, Headache, Increased Appetite , Lethargy, Malaise, Night Sweats, Snoring, Sleep Apnea, Weight Gain, Weight Loss, Weakness, Other - EENT Eyes: absent: As Per HPI, Blind Spots, Blurred Vision, Change in Vision, Decreased Night Vision, Diplopia, Discharge, Dry Eye, Exophthalmos, Floaters, Irritation, Itchy Eyes, Loss of Peripheral Vision, Pain, Photophobia, Requires Corrective Lenses, Sees Flashes, Spots in Vision, Tunnel Vision, Other Visual Disturbances, Loss of Vision, Other Ears: absent: As Per HPI, Decreased Hearing, Ear Discharge, Ear Pain, Tinnitus, Abnormal Hearing, Disequilibrium, Dizziness, Other Nose/Mouth/Throat: absent: As Per HPI, Epistaxis, Nasal Congestion, Nasal Discharge, Nasal Obstruction, Nasal Trauma, Nose Pain, Post Nasal Drip, Sinus Pain, Sinus Pressure, Bleeding Gums, Change in Voice, Dental Pain, Dry Mouth, Dysphagia, Halitosis, Hoarsness, Lip Swelling, Mouth Lesions, Mouth Pain, Odynophagia, Sore Throat, Throat Swelling, Tongue Swelling, Facial Pain, Neck Pain, Neck Mass, Other - Breasts Breasts: absent: As Per HPI, Change in Shape, Mass, Pain, Nipple Discharge, Nipple Inversion, Skin Changes, Swelling, Other - Cardiovascular Cardiovascular: absent: As Per HPI, Acrocyanosis, Chest Pain, Chest Pain at Rest , Chest Pain with Activity, Claudication, Diaphoresis, Dyspnea, Dyspnea on Exertion, Edema, Irregular Heart Rhythm, Pain Radiating to Arm/Neck/Jaw, Leg Edema, Leg Ulcers, Lightheadedness, Orthopnea, Palpitations, Paroxysmal Nocturnal Dyspnea, Pedal Edema, Radiating Pain, Rapid Heart Rate, Slow Heart Rate, Syncope, Other - Respiratory Respiratory: absent: As Per HPI, Cough, Dyspnea, Hemoptysis, Dyspnea on Exertion , Wheezing, Snoring, Stridor, Pain on Inspiration, Chest Congestion, Excessive Mucous Production, Change in Mucous Color, Pain with Coughing, Other - Gastrointestinal Gastrointestinal: absent: As Per HPI, Abdominal Pain, Belching, Bloating, Change in Bowel Habits, Change in Stool Character, Coffee Ground Emesis, Constipation, Cramping, Diarrhea, Dyspepsia, Dysphagia, Early Satiety, Excessive Flatus, Fecal Incontinence, Heartburn, Hematemesis, Hematochezia, Loose Stools, Melena, Nausea, Odynophagia, Temesmus, Vomiting, Other - Genitourinary Genitourinary: absent: As Per HPI, Change in Urinary Stream, Difficulty Urinating, Dysuria, Flank Pain, Hematuria, Pyuria, Nocturia, Urinary Incontinence, Urinary Frequency, Urinary Hesitance, Urinary Urgency, Voiding Freq/Small Amts, Freq UTI, Hx Renal/Bladder Calculi, Hx /Renal Surgery, Bladder Distension, Other - Reproductive: Female Reproductive:Female: absent: As Per HPI, Amenorrhea, Amenorrhea/ Control, Currently Menstual, Cycle <21 Days, Cycle >35 Days, Cycle Variable, Menses 1-7 Days, Menses >/= 8 Days, Menses Variable, Cycle > 4 Weeks Between, No Menses for 6 Months, Heavy Menses, Light Menses, Normal Menses, Spotting Between Cycles , S/P Hysterectomy, Menopausal, Post Menopausal, Premenarche, Abnormal Vaginal Bleeding, Dysmenorrhea, Dyspareunia, Genital Lesions, Genital Pruritis, Pelvic Pain, Prolapse Symptoms, Sexual Dysfunction, Vaginal Discharge, Vaginal Dryness , Vaginal Odor, Vaginal Pruritis, Other - Menstruation Menstruation: absent: As Per HPI, Amenorrhea, Amenorrhea/ Control, Currently Menstual, Cycle <21 Days, Cycle >35 Days, Cycle Variable, Menses 1-7 Days, Menses >/= 8 Days, Menses Variable, Cycle > 4 Weeks Between, No Menses for 6 Months, Heavy Menses, Light Menses, Normal Menses, Spotting Between Cycles , S/P Hysterectomy, Menopausal, Post Menopausal, Premenarche, Abnormal Vaginal Bleeding, Dysmenorrhea, Other - Musculoskeletal Musculoskeletal: As Per HPI - Integumentary Integumentary: As Per HPI - Neurological Neurological: absent: As Per HPI, Abnormal Gait, Abnormal Hearing, Abnormal Movements, Abnormal Speech, Behavioral Changes, Burning Sensations, Confusion, Convulsions, Disequilibrium, Dizziness, Numbness, Focal Weakness, Frequent Falls , Headaches, Lack of Coordination, Loss of Vision, Memory Loss, Paresthesias, Radicular Pain, Restless Legs, Sensory Deficit, Syncope, Tingling, Tremor, Vertigo, Weakness, Other Visual Disturbances, Other Past Patient History - Infectious Disease Hx of Infectious Diseases: None - Past Medical History & Family History Past Medical History?: Yes - Past Social History Smoking Status: Never Smoked - CARDIAC Hx Cardiac Disorders: Yes Hx Hypertension: Yes - PULMONARY Hx Respiratory Disorders: No - NEUROLOGICAL Hx Neurological Disorder: No - HEENT Hx HEENT Problems: No - RENAL Hx Chronic Kidney Disease: No - ENDOCRINE/METABOLIC Hx Endocrine Disorders: No - HEMATOLOGICAL/ONCOLOGICAL Hx Blood Disorders: No - INTEGUMENTARY Hx Dermatological Problems: Yes Hx Cellulitis: Yes - MUSCULOSKELETAL/RHEUMATOLOGICAL Hx Musculoskeletal Disorders: No - GASTROINTESTINAL Hx Gastrointestinal Disorders: No - GENITOURINARY/GYNECOLOGICAL Hx Genitourinary Disorders: No - PSYCHIATRIC Hx Psychophysiologic Disorder: Yes Hx Depression: Yes Hx Schizophrenia: Yes Hx Substance Use: No - SURGICAL HISTORY Hx Surgeries: Yes Hx Section: Yes - ANESTHESIA Hx Anesthesia: Yes Hx Anesthesia Reactions: No Hx Malignant Hyperthermia: No Has any member of the family had a problem w/ anesthesia?: No Meds Allergies/Adverse Reactions: Allergies Allergy/AdvReac Type Severity Reaction Status Date / Time No Known Allergies Allergy Verified 01/21/18 21:30 - Medications Medications: Current Medications Benztropine Mesylate (Cogentin) 0.5 mg PO BID [facility] Bupropion HCl (Wellbutrin Xl) 150 mg PO DAILY [facility] Heparin Sodium (Porcine) (Heparin) 5,000 units SC Q8 [facility] Cefazolin Sodium/Dextrose (Ancef Iv 2 Gm Duplex) 2 gm in 50 mls @ 100 mls/hr IVPB Q8H [facility] PRN Reason: Protocol Pantoprazole Sodium (Protonix Ec Tab) 40 mg PO DAILY [facility] Risperidone (Risperdal Tab) 2 mg PO HS [facility] Physical Exam - Constitutional Appears: Chronically Ill - Head Exam Head Exam: NORMOCEPHALIC - Eye Exam Eye Exam: absent: Scleral icterus - ENT Exam ENT Exam: Mucous Membranes Dry - Neck Exam Neck exam: Negative for: Lymphadenopathy - Respiratory Exam Respiratory Exam: Decreased Breath Sounds - Cardiovascular Exam Cardiovascular Exam: REGULAR RHYTHM - GI/Abdominal Exam GI & Abdominal Exam: Diminished Bowel Sounds - Rectal Exam Rectal Exam: Deferred - Exam Exam: NORMAL INSPECTION - Extremities Exam Extremities exam: Positive for: pedal edema, tenderness, pedal pulses present. Negative for: calf tenderness - Back Exam Back exam: absent: CVA tenderness (L), CVA tenderness (R) - Neurological Exam Neurological exam: Alert, CN II-XII Intact, Oriented x3, Reflexes Normal - Psychiatric Exam Psychiatric exam: Normal Mood - Skin Skin Exam: Erythema Results - Vital Signs Recent Vital Signs: Last Vital Signs Temp 97.6 F 02/17/18 12:35 Pulse 97 H 02/17/18 12:35 Resp 20 02/17/18 12:35 BP 131/86 02/17/18 12:35 Pulse Ox 96 02/17/18 12:35 - Labs Result Diagrams: 02/17/18 09:59 02/17/18 09:59 Labs: Laboratory Results - last 24 hr 02/17/18 02/17/18 02/17/18 09:59 09:59 10:27 WBC 10.3 RBC 4.33 Hgb 12.1 Hct 36.8 MCV 85.2 MCH 28.1 MCHC 33.0 RDW 15.8 H Plt Count 301 MPV 9.2 Neut % (Auto) 66.3 Lymph % (Auto) 23.2 [place] % (Auto) 7.7 Eos % (Auto) 1.6 Baso % (Auto) 1.2 Neut # (Auto) 6.8 Lymph # (Auto) 2.4 [place] # (Auto) 0.8 Eos # (Auto) 0.2 Baso # (Auto) 0.1 PT 11.9 INR 1.1 APTT 35 H pO2 VBG pH VBG pCO2 VBG HCO3 VBG Total CO2 VBG O2 Sat (Calc) VBG Base Excess VBG Potassium Glucose Lactate Sodium 144 Potassium 3.8 Chloride 106 Carbon Dioxide 26 Anion Gap 16 BUN 10 Creatinine 0.7 Est GFR ( Amer) > 60 Est GFR (Non-Af Amer) > 60 Random Glucose 103 Calcium 9.1 Total Bilirubin 0.7 AST 51 H ALT 92 H Alkaline Phosphatase 85 Total Protein 7.7 Albumin 4.1 Globulin 3.7 Albumin/Globulin Ratio 1.1 Venous Blood Potassium 02/17/18 10:29 WBC RBC Hgb Hct MCV MCH MCHC RDW Plt Count MPV Neut % (Auto) Lymph % (Auto) [place] % (Auto) Eos % (Auto) Baso % (Auto) Neut # (Auto) Lymph # (Auto) [place] # (Auto) Eos # (Auto) Baso # (Auto) PT INR APTT pO2 37 VBG pH 7.40 VBG pCO2 44 VBG HCO3 25.8 VBG Total CO2 28.7 H VBG O2 Sat (Calc) 77.7 H VBG Base Excess 2.0 VBG Potassium 3.4 L Glucose 94 Lactate 1.1 Sodium 142.0 Potassium Chloride 108.0 H Carbon Dioxide Anion Gap BUN Creatinine Est GFR ( Amer) Est GFR (Non-Af Amer) Random Glucose Calcium Total Bilirubin AST ALT Alkaline Phosphatase Total Protein Albumin Globulin Albumin/Globulin Ratio Venous Blood Potassium 3.4 L Assessment & Plan - Assessment and Plan (Free Text) Assessment: CONT RX CELLULITIS FAILED OUT PT RX
[2018-02-17] MEDS: ceFAZolin IV 2 gm in Dextrose 2 GM/50 ML BAG IVPB SCH (17:16)
[2018-02-18] MEDS: ceFAZolin IV 2 gm in Dextrose 2 GM/50 ML BAG IVPB SCH ×3 (00:41→17:28)
[2018-02-18 06:44] LABS: BASO # 0.1 K/uL (0.0-0.2); BASO % 0.7 % (0.0-2.0); EOS # 0.2 K/uL (0.0-0.7); EOS % 2.3 % (0.0-4.0); HEMOGLOBIN 11.5 g/dL (11.0-16.0); LYMPH # 2.2 K/uL (1.0-4.3); LYMPH % 23.1 % (20.0-40.0); MEAN CELL VOLUME 85.3 fL (81.0-99.0); MEAN CORPUSCULAR HEMOGLOBIN 27.8 pg (27.0-31.0); MEAN CORPUSCULAR HGB CONC 32.6 g/dL (33.0-37.0); MONO # 0.7 K/uL (0.0-0.8); MONO % 6.9 % (0.0-10.0); NEUT # 6.3 K/uL (1.8-7.0); RBC 4.15 Mil/uL (3.80-5.20); WHITE BLOOD COUNT 9.4 K/uL (4.8-10.8)
[2018-02-18 06:57] LABS: ALB/GLOB RATIO 1.2 (1.0-2.1); ALBUMIN 3.9 g/dL (3.5-5.0); ALT/SGPT 75 U/L (9-52); AST/SGOT 38 U/L (14-36); BLOOD UREA NITROGEN 11 mg/dL (7-17); CALCIUM 9.1 mg/dl (8.6-10.4); GFR AFRICAN-AMERICAN > 60; GFR NON-AFRICAN AMERICAN > 60; HDL CHOLESTEROL 33 mg/dL (30-70)
[2018-02-18 07:07] LABS: LDL CHOLESTEROL 106 mg/dL (0-129)
[2018-02-18 07:26] LABS: HEPATITIS B SURFACE AG Negative (NEGATIVE)
[2018-02-18 07:32] LABS: HEPATITIS A IGM NEGATIVE (NEGATIVE); HEPATITIS B CORE AB NEGATIVE (NEGATIVE)
[2018-02-18 07:43] LABS: HEPATITIS C ANTIBODY NEGATIVE (NEGATIVE)
[2018-02-18] MEDS: buPROPion 150 mg/24 Hours XL Tab PO SCH (09:28)
[2018-02-18] MEDS: Pantoprazole 40 mg EC Tab PO SCH (09:28)
[2018-02-18] MEDS ORDERED: Pneumococcal 23-Valent Vaccine IM ONE (10:00)
[2018-02-18] MEDS ORDERED: Pantoprazole 20 mg EC Tab PO SCH (10:00)
--- NOTE | 2018-02-18 10:43 | CP.PCM.PN ---
Subjective - Date & Time of Evaluation Date of Evaluation: 02/18/18 Time of Evaluation: 07:00 - Subjective Subjective: PGY2 Progress Note for Dr. Álvarez Patient seen and examined at bedside and in no acute distress. Patient says her legs are feeling a little better. Patient says she still gets a warm and itching sensation when trying to walk. Patient denies any chest pain, shortness of breath, abdominal pain, nausea, vomiting, constipation, or diarrhea. Objective - Vital Signs/Intake and Output Vital Signs (last 24 hours): Temp Pulse Resp BP Pulse Ox 98.4 F 84 20 121/77 96 02/18/18 07:00 02/18/18 07:00 02/18/18 07:00 02/18/18 07:00 02/18/18 07:00 Intake and Output: 02/18/18 02/18/18 06:59 18:59 Intake Total 500 Balance 500 - Medications Medications: Current Medications Benztropine Mesylate (Cogentin) 0.5 mg PO BID [facility] Last Admin: 02/18/18 09:29 Dose: 0.5 mg Bupropion HCl (Wellbutrin Xl) 150 mg PO DAILY [facility] Last Admin: 02/18/18 09:28 Dose: 150 mg Heparin Sodium (Porcine) (Heparin) 5,000 units SC Q8 [facility] Last Admin: 02/18/18 06:01 Dose: 5,000 units Cefazolin Sodium/Dextrose (Ancef Iv 2 Gm Duplex) 2 gm in 50 mls @ 100 mls/hr IVPB Q8H [facility] PRN Reason: Protocol Last Admin: 02/18/18 09:32 Dose: 100 mls/hr Pantoprazole Sodium (Protonix Ec Tab) 40 mg PO DAILY [facility] Last Admin: 02/18/18 09:28 Dose: 40 mg Risperidone (Risperdal Tab) 2 mg PO HS [facility] Last Admin: 02/17/18 21:12 Dose: Not Given - Labs Labs: 02/18/18 06:34 02/18/18 06:34 PT 11.9 SECONDS (9.7-12.2) 02/17/18 10:27 INR 1.1 02/17/18 10:27 APTT 35 SECONDS (21-34) H 02/17/18 10:27 - Additional Findings Additional findings: - Constitutional Appears: Non-toxic, No Acute Distress - Head Exam Head Exam: ATRAUMATIC, NORMAL INSPECTION, NORMOCEPHALIC - Eye Exam Eye Exam: EOMI, Normal appearance - ENT Exam ENT Exam: Mucous Membranes Moist - Respiratory Exam Respiratory Exam: Clear to Ausculation Bilateral, NORMAL BREATHING PATTERN. absent: Rales, Rhonchi, Wheezes, Respiratory Distress, Stridor - Cardiovascular Exam Cardiovascular Exam: REGULAR RHYTHM, RRR, +S1, +S2 - GI/Abdominal Exam GI & Abdominal Exam: Soft, Normal Bowel Sounds. absent: Tenderness - Extremities Exam Extremities Exam: Full ROM, Pedal Edema (1+ pitting edema b/l) - Neurological Exam Neurological Exam: Alert, Awake, Oriented x3 - Psychiatric Exam Psychiatric exam: Flat Affect, Normal Mood - Skin Skin Exam: Erythema, Warm Assessment and Plan - Assessment and Plan (Free Text) Assessment: Bilateral LE Cellulitis failed outpatient therapy Dr. Velasco consulted, help appreciated Ancef 2g q8h cellulitic changes outlined, monitor progress f/u blood cultures Transaminitis AST: decreased to 38 from 51 ALT: decreased to 75 from 92 Hepatitis Panel negative HIV 1&2 negative Schizophrenia Risperidone 2mg po HS Cogentin .5mg po BID Depression Wellbutrin Xl 150mg po daily IGT HgA1C 6.3 lipid panel : Triglycerides: 93, Chol: 163, LDL: 106, HDL: 33 HTN not currently on any medications as per pharmacy will monitor Prophylaxis Protonix 40mg po daily Heparin 5000u sc q8h no scds due to LE edema Management as per Dr. Álvarez
--- NOTE | 2018-02-18 13:26 | VASCLAB ---
Date of service: 02/17/2018 PROCEDURE: Lower Extremity Venous Duplex Exam. HISTORY: leg swelling, erythema, r/o dvt PRIORS: None. TECHNIQUE: Bilateral common femoral, femoral, popliteal and posterior tibial, peroneal and great saphenous veins were evaluated. Flow was assessed with color Doppler, compressibility, assessment of phasic flow and augmentation response. Report prepared by Siddharth Prabhakar, BS, RVT FINDINGS: RIGHT: 1. Common Femoral Vein: 1.1. Compressibility - Fully compressible: Thrombus - None : Flow - Phasic: Augmentation -Normal: Reflux - None. 2. Femoral Vein: 2.1. Compressibility - Fully compressible: Thrombus - None : Flow - Phasic: Augmentation -Normal: Reflux - None. 3. Popliteal Vein: 3.1. Compressibility - Fully compressible: Thrombus - None : Flow - Phasic: Augmentation -Normal: Reflux - None. 4. Posterior Tibial Vein: 4.1. Compressibility - Fully compressible: Thrombus - None: Flow - Phasic: Augmentation -Normal: Reflux - None. 5. Peroneal Vein: 5.1. Compressibility - Fully compressible: Thrombus - None: Flow - Phasic: Augmentation -Normal: Reflux - None. 6. Great Saphenous Vein: 6.1. Compressibility - Fully compressible: Thrombus - None: Flow - Phasic: Augmentation - Normal: Reflux - None. LEFT: 1. Common Femoral Vein: 1.1. Compressibility - Fully compressible: Thrombus - None: Flow - Phasic: Augmentation -Normal: Reflux - None. 2. Femoral Vein: 2.1. Compressibility - Fully compressible: Thrombus - None: Flow - Phasic: Augmentation -Normal: Reflux - None. 3. Popliteal Vein: 3.1. Compressibility - Fully compressible: Thrombus - None : Flow - Phasic: Augmentation -Normal: Reflux - None. 4. Posterior Tibial Vein: 4.1. Compressibility - Fully compressible: Thrombus - None: Flow - Phasic: Augmentation -Normal: Reflux - None. 5. Peroneal Vein: 5.1. Compressibility - Fully compressible: Thrombus - None: Flow - Phasic: Augmentation -Normal: Reflux - None. 6. Great Saphenous Vein: 6.1. Compressibility - Fully compressible: Thrombus - None: Flow - Phasic: Augmentation - Normal: Reflux - None. OTHER FINDINGS: Right: None significant. Left: None significant. IMPRESSION: Right: No evidence of deep or superficial vein thrombosis of the right lower extremity. Normal valve function noted of the right side. Left: No evidence of deep or superficial vein thrombosis of the left lower extremity. Normal valve function noted of the left side.
--- NOTE | 2018-02-18 17:11 | CP.PCM.PN ---
Subjective - Date & Time of Evaluation Date of Evaluation: 02/18/18 Time of Evaluation: 08:00 - Subjective Subjective: slow progress IV rx reordered Objective - Vital Signs/Intake and Output Vital Signs (last 24 hours): Temp Pulse Resp BP Pulse Ox 98.4 F 90 20 139/89 96 02/18/18 15:45 02/18/18 15:45 02/18/18 15:45 02/18/18 15:45 02/18/18 15:45 Intake and Output: 02/18/18 02/18/18 06:59 18:59 Intake Total 500 580 Balance 500 580 - Medications Medications: Current Medications Benztropine Mesylate (Cogentin) 0.5 mg PO BID [facility] Last Admin: 02/18/18 09:29 Dose: 0.5 mg Bupropion HCl (Wellbutrin Xl) 150 mg PO DAILY [facility] Last Admin: 02/18/18 09:28 Dose: 150 mg Heparin Sodium (Porcine) (Heparin) 5,000 units SC Q8 [facility] Last Admin: 02/18/18 14:06 Dose: 5,000 units Cefazolin Sodium/Dextrose (Ancef Iv 2 Gm Duplex) 2 gm in 50 mls @ 100 mls/hr IVPB Q8H [facility] PRN Reason: Protocol Last Admin: 02/18/18 09:32 Dose: 100 mls/hr Pantoprazole Sodium (Protonix Ec Tab) 40 mg PO DAILY [facility] Last Admin: 02/18/18 09:28 Dose: 40 mg Pneumococcal Polyvalent Vaccine (Pneumovax 23 Vaccine) 0.5 ml IM .ONCE ONE Stop: 02/19/18 10:01 Risperidone (Risperdal Tab) 2 mg PO [facility] Last Admin: 02/17/18 21:12 Dose: Not Given - Labs Labs: 02/18/18 06:34 02/18/18 06:34 PT 11.9 SECONDS (9.7-12.2) 02/17/18 10:27 INR 1.1 02/17/18 10:27 APTT 35 SECONDS (21-34) H 02/17/18 10:27 - Constitutional Appears: Non-toxic, Chronically Ill - Head Exam Head Exam: NORMOCEPHALIC - Eye Exam Eye Exam: PERRL - ENT Exam ENT Exam: Mucous Membranes Dry - Neck Exam Neck Exam: absent: Lymphadenopathy - Respiratory Exam Respiratory Exam: Decreased Breath Sounds - Cardiovascular Exam Cardiovascular Exam: REGULAR RHYTHM - GI/Abdominal Exam GI & Abdominal Exam: Distended, Soft - Rectal Exam Rectal Exam: Deferred Assessment and Plan (1) Cellulitis Status: Acute (2) Cellulitis Status: Acute - Assessment and Plan (Free Text) Assessment: cont iv rx / check cultures
[2018-02-19] MEDS: ceFAZolin IV 2 gm in Dextrose 2 GM/50 ML BAG IVPB SCH ×3 (00:54→17:09)
[2018-02-19 07:58] LABS: BASO # 0.1 K/uL (0.0-0.2); BASO % 0.6 % (0.0-2.0); EOS # 0.2 K/uL (0.0-0.7); EOS % 2.6 % (0.0-4.0); HEMOGLOBIN 11.3 g/dL (11.0-16.0); LYMPH # 1.9 K/uL (1.0-4.3); LYMPH % 19.7 % (20.0-40.0); MEAN CORPUSCULAR HEMOGLOBIN 28.4 pg (27.0-31.0); MEAN CORPUSCULAR HGB CONC 33.4 g/dL (33.0-37.0); MEAN PLATELET VOLUME 9.1 fL (7.2-11.7); MONO # 0.7 K/uL (0.0-0.8); MONO % 7.3 % (0.0-10.0); NEUT # 6.6 K/uL (1.8-7.0); NEUT % 69.8 % (50.0-75.0); RBC 3.97 Mil/uL (3.80-5.20); RED CELL DISTRIBUTION WIDTH 15.7 % (11.5-14.5); WHITE BLOOD COUNT 9.4 K/uL (4.8-10.8)
[2018-02-19 08:08] LABS: ALB/GLOB RATIO 1.3 (1.0-2.1); ALBUMIN 3.8 g/dL (3.5-5.0); ALT/SGPT 62 U/L (9-52); AST/SGOT 32 U/L (14-36); BLOOD UREA NITROGEN 12 mg/dL (7-17); CALCIUM 8.8 mg/dl (8.6-10.4); GFR AFRICAN-AMERICAN > 60; GFR NON-AFRICAN AMERICAN > 60
[2018-02-19] MEDS ORDERED: Pneumococcal 23-Valent Vaccine IM ONE (10:00)
[2018-02-19] MEDS: Pantoprazole 40 mg EC Tab PO SCH (11:09)
[2018-02-19] MEDS: buPROPion 150 mg/24 Hours XL Tab PO SCH (11:12)
--- NOTE | 2018-02-19 14:38 | CP.PCM.PN ---
Subjective - Date & Time of Evaluation Date of Evaluation: 02/19/18 Time of Evaluation: 08:00 - Subjective Subjective: discussed on rounds iv rx renewed Objective - Vital Signs/Intake and Output Vital Signs (last 24 hours): Temp Pulse Resp BP Pulse Ox 98.5 F 92 H 20 127/84 96 02/19/18 08:12 02/19/18 08:12 02/19/18 08:12 02/19/18 08:12 02/19/18 08:12 Intake and Output: 02/19/18 02/19/18 06:59 18:59 Intake Total 600 Balance 600 - Medications Medications: Current Medications Benztropine Mesylate (Cogentin) 0.5 mg PO BID [facility] Last Admin: 02/19/18 11:09 Dose: 0.5 mg Bupropion HCl (Wellbutrin Xl) 150 mg PO DAILY [facility] Last Admin: 02/19/18 11:12 Dose: Not Given Heparin Sodium (Porcine) (Heparin) 5,000 units SC Q8 [facility] Last Admin: 02/19/18 14:13 Dose: 5,000 units Cefazolin Sodium/Dextrose (Ancef Iv 2 Gm Duplex) 2 gm in 50 mls @ 100 mls/hr IVPB Q8H [facility] PRN Reason: Protocol Last Admin: 02/19/18 08:45 Dose: 100 mls/hr Pantoprazole Sodium (Protonix Ec Tab) 40 mg PO DAILY [facility] Last Admin: 02/19/18 11:09 Dose: 40 mg Risperidone (Risperdal Tab) 2 mg PO HS [facility] Last Admin: 02/18/18 21:32 Dose: Not Given - Labs Labs: 02/19/18 07:43 02/19/18 07:43 PT 11.9 SECONDS (9.7-12.2) 02/17/18 10:27 INR 1.1 02/17/18 10:27 APTT 35 SECONDS (21-34) H 02/17/18 10:27 - Constitutional Appears: Non-toxic, Chronically Ill - Head Exam Head Exam: NORMOCEPHALIC - Eye Exam Eye Exam: PERRL - ENT Exam ENT Exam: Mucous Membranes Dry - Neck Exam Neck Exam: absent: Lymphadenopathy - Respiratory Exam Respiratory Exam: Decreased Breath Sounds - Cardiovascular Exam Cardiovascular Exam: REGULAR RHYTHM - GI/Abdominal Exam GI & Abdominal Exam: Distended, Soft - Rectal Exam Rectal Exam: Deferred - Extremities Exam Extremities Exam: Pedal Edema, Tenderness. absent: Calf Tenderness - Back Exam Back Exam: absent: CVA tenderness (L), CVA tenderness (R) - Neurological Exam Neurological Exam: Alert, Awake, Oriented x3 Assessment and Plan (1) Cellulitis Status: Acute (2) Cellulitis Status: Acute - Assessment and Plan (Free Text) Assessment: cont iv rx for now possible d/c on po rx thursday
--- NOTE | 2018-02-19 15:28 | CP.PCM.PN ---
Subjective - Date & Time of Evaluation Date of Evaluation: 02/19/18 Time of Evaluation: 07:00 - Subjective Subjective: PGY2 Progress Note for Dr. Álvarez Patient seen and examined at bedside and in no acute distress. Patient says her legs are feeling a lot better. Patient says she still gets a warm and itching sensation when trying to walk. Patient denies any chest pain, shortness of breath, abdominal pain, nausea, vomiting, constipation, or diarrhea. Objective - Vital Signs/Intake and Output Vital Signs (last 24 hours): Temp Pulse Resp BP Pulse Ox 98.5 F 92 H 20 127/84 96 02/19/18 08:12 02/19/18 08:12 02/19/18 08:12 02/19/18 08:12 02/19/18 08:12 Intake and Output: 02/19/18 02/19/18 06:59 18:59 Intake Total 600 Balance 600 - Medications Medications: Current Medications Benztropine Mesylate (Cogentin) 0.5 mg PO BID [facility] B[facility]S AT [facility] Last Admin: 02/19/18 11:09 Dose: 0.5 mg Bupropion HCl (Wellbutrin Xl) 150 mg PO DAILY [facility]S [facility] Last Admin: 02/19/18 11:12 Dose: Not Given Heparin Sodium (Porcine) (Heparin) 5,000 units SC Q8 [facility]S [facility] Last Admin: 02/19/18 14:13 Dose: 5,000 units Cefazolin Sodium/Dextrose (Ancef Iv 2 Gm Duplex) 2 gm in 50 mls @ 100 mls/hr IVPB Q8H [facility]S [facility] PRN Reason: Protocol Last Admin: 02/19/18 08:45 Dose: 100 mls/hr Nystatin (Mycostatin Cream) 1 ea TOP TID [facility] 234 BEDS AT [facility] Pantoprazole Sodium (Protonix Ec Tab) 40 mg PO DAILY [facility] Last Admin: 02/19/18 11:09 Dose: 40 mg Risperidone (Risperdal Tab) 2 mg PO HS [facility] Last Admin: 02/18/18 21:32 Dose: Not Given - Labs Labs: 02/19/18 07:43 02/19/18 07:43 PT 11.9 SECONDS (9.7-12.2) 02/17/18 10:27 INR 1.1 02/17/18 10:27 APTT 35 SECONDS (21-34) H 02/17/18 10:27 - Additional Findings Additional findings: - Constitutional Appears: Non-toxic, No Acute Distress - Head Exam Head Exam: ATRAUMATIC, NORMAL INSPECTION, NORMOCEPHALIC - Eye Exam Eye Exam: EOMI, Normal appearance - ENT Exam ENT Exam: Mucous Membranes Moist - Respiratory Exam Respiratory Exam: Clear to Ausculation Bilateral, NORMAL BREATHING PATTERN. absent: Rales, Rhonchi, Wheezes, Respiratory Distress, Stridor - Cardiovascular Exam Cardiovascular Exam: REGULAR RHYTHM, RRR, +S1, +S2 - GI/Abdominal Exam GI & Abdominal Exam: Soft, Normal Bowel Sounds. absent: Tenderness - Extremities Exam Extremities Exam: Full ROM, Pedal Edema (1+ pitting edema b/l) - Neurological Exam Neurological Exam: Alert, Awake, Oriented x3 - Psychiatric Exam Psychiatric exam: Flat Affect, Normal Mood - Skin Skin Exam: decreased erythema, edema, warm Assessment and Plan - Assessment and Plan (Free Text) Assessment: Bilateral LE Cellulitis failed outpatient therapy Dr. Velasco consulted, help appreciated Ancef 2g q8h cellulitic changes outlined, monitor progress blood cultures negative continue iv antibiotics, then po Keflex upon discharge Transaminitis AST: decreased to 32 from 38 from 51 ALT: decreased to 62 from 75 from 92 Hepatitis Panel negative HIV 1&2 negative Schizophrenia Risperidone 2mg po HS Cogentin .5mg po BID Depression Wellbutrin Xl 150mg po daily IGT HgA1C 6.3 lipid panel : Triglycerides: 93, Chol: 163, LDL: 106, HDL: 33 HTN not currently on any medications as per pharmacy will monitor Prophylaxis Protonix 40mg po daily Heparin 5000u sc q8h no scds due to LE edema Management as per Dr. Álvarez
[2018-02-19] MEDS: Nystatin 100,000 Units/gm Cream(15 gm) TOP SCH (17:47)
[2018-02-20] MEDS: ceFAZolin IV 2 gm in Dextrose 2 GM/50 ML BAG IVPB SCH ×3 (00:51→17:30)
[2018-02-20 08:41] LABS: BASO # 0.1 K/uL (0.0-0.2); BASO % 0.7 % (0.0-2.0); EOS # 0.2 K/uL (0.0-0.7); EOS % 1.9 % (0.0-4.0); HEMOGLOBIN 12.1 g/dL (11.0-16.0); LYMPH # 2.4 K/uL (1.0-4.3); LYMPH % 21.7 % (20.0-40.0); MEAN CORPUSCULAR HEMOGLOBIN 27.8 pg (27.0-31.0); MEAN CORPUSCULAR HGB CONC 32.7 g/dL (33.0-37.0); MEAN PLATELET VOLUME 9.8 fL (7.2-11.7); MONO # 0.7 K/uL (0.0-0.8); MONO % 6.5 % (0.0-10.0); NEUT # 7.6 K/uL (1.8-7.0); NEUT % 69.2 % (50.0-75.0); RBC 4.35 Mil/uL (3.80-5.20); RED CELL DISTRIBUTION WIDTH 15.7 % (11.5-14.5)
[2018-02-20 08:57] LABS: ALB/GLOB RATIO 1.3 (1.0-2.1); ALBUMIN 4.3 g/dL (3.5-5.0); ALT/SGPT 66 U/L (9-52); AST/SGOT 51 U/L (14-36); BLOOD UREA NITROGEN 13 mg/dL (7-17); CALCIUM 9.4 mg/dl (8.6-10.4); GFR AFRICAN-AMERICAN > 60; GFR NON-AFRICAN AMERICAN > 60
[2018-02-20] MEDS: buPROPion 150 mg/24 Hours XL Tab PO SCH (09:52)
[2018-02-20] MEDS: Pantoprazole 40 mg EC Tab PO SCH (09:52)
[2018-02-20] MEDS: Nystatin 100,000 Units/gm Cream(15 gm) TOP SCH ×3 (09:52→17:30)
--- NOTE | 2018-02-20 14:05 | CP.PCM.PN ---
<Ioana Thakkar - Last Filed: 02/20/18 19:55> Subjective - Date & Time of Evaluation Date of Evaluation: 02/20/18 Time of Evaluation: 07:00 - Subjective Subjective: PGY2- Progress Note for Dr. Toro Patient seen and examined at bedside. Patient says her legs are feeling much better. Patient is walking around more. Patient still has some mild burning in her legs when she walks. Patient denies any headache, chest pain, abdominal pain , nausea, vomiting, constipation, or diarrhea. Objective - Vital Signs/Intake and Output Vital Signs (last 24 hours): Temp Pulse Resp BP Pulse Ox 98.0 F 86 20 132/92 H 96 02/20/18 07:00 02/20/18 07:00 02/20/18 07:00 02/20/18 07:00 02/20/18 07:00 Intake and Output: 02/20/18 02/20/18 06:59 18:59 Intake Total 700 Balance 700 - Medications Medications: Current Medications Benztropine Mesylate (Cogentin) 0.5 mg PO BID [facility] Last Admin: 02/20/18 09:52 Dose: 0.5 mg Bupropion HCl (Wellbutrin Xl) 150 mg PO DAILY [facility] Last Admin: 02/20/18 09:52 Dose: 150 mg Heparin Sodium (Porcine) (Heparin) 5,000 units SC Q8 [facility] Last Admin: 02/20/18 06:20 Dose: 5,000 units Cefazolin Sodium/Dextrose (Ancef Iv 2 Gm Duplex) 2 gm in 50 mls @ 100 mls/hr IVPB Q8H [facility] PRN Reason: Protocol Last Admin: 02/20/18 09:52 Dose: 100 mls/hr Nystatin (Mycostatin Cream) 1 ea TOP TID [facility] Last Admin: 02/20/18 09:52 Dose: 1 applic Pantoprazole Sodium (Protonix Ec Tab) 40 mg PO DAILY [facility] Last Admin: 02/20/18 09:52 Dose: 40 mg Risperidone (Risperdal Tab) 2 mg PO HS [facility] Last Admin: 02/19/18 21:16 Dose: Not Given - Labs Labs: 02/20/18 08:27 02/20/18 08:27 PT 11.9 SECONDS (9.7-12.2) 02/17/18 10:27 INR 1.1 02/17/18 10:27 APTT 35 SECONDS (21-34) H 02/17/18 10:27 - Additional Findings Additional findings: - Constitutional Appears: Non-toxic, No Acute Distress - Head Exam Head Exam: ATRAUMATIC, NORMAL INSPECTION, NORMOCEPHALIC - Eye Exam Eye Exam: EOMI, Normal appearance - ENT Exam ENT Exam: Mucous Membranes Moist - Respiratory Exam Respiratory Exam: Clear to Ausculation Bilateral, NORMAL BREATHING PATTERN. absent: Rales, Rhonchi, Wheezes, Respiratory Distress, Stridor - Cardiovascular Exam Cardiovascular Exam: REGULAR RHYTHM, RRR, +S1, +S2 - GI/Abdominal Exam GI & Abdominal Exam: Soft, Normal Bowel Sounds. absent: Tenderness - Extremities Exam Extremities Exam: Full ROM, Pedal Edema (1+ pitting edema b/l) - Neurological Exam Neurological Exam: Alert, Awake, Oriented x3 - Psychiatric Exam Psychiatric exam: Flat Affect, Normal Mood - Skin Skin Exam: decreased erythema, edema, warm Assessment and Plan - Assessment and Plan (Free Text) Assessment: Bilateral LE Cellulitis failed outpatient therapy Dr. Velasco consulted, help appreciated Ancef 2g q8h cellulitic changes outlined, monitor progress blood cultures negative continue iv antibiotics, then po Keflex upon discharge Transaminitis AST: 51 ALT: 66 Hepatitis Panel negative HIV 1&2 negative Schizophrenia Risperidone 2mg po HS Cogentin .5mg po BID Depression Wellbutrin Xl 150mg po daily IGT HgA1C 6.3 lipid panel : Triglycerides: 93, Chol: 163, LDL: 106, HDL: 33 HTN not currently on any medications as per pharmacy will monitor Prophylaxis Protonix 40mg po daily Heparin 5000u sc q8h no scds due to LE edema Management as per Dr. Toro Dispo: tomorrow will be day 5 of iv antibiotics, then discharge with po Keflex <Jono Toro - Last Filed: 02/20/18 21:58> Objective - Vital Signs/Intake and Output Vital Signs (last 24 hours): Temp Pulse Resp BP Pulse Ox 99.0 F 82 20 132/87 98 02/20/18 15:30 02/20/18 15:30 02/20/18 15:30 02/20/18 15:30 02/20/18 15:30 - Medications Medications: Current Medications Benztropine Mesylate (Cogentin) 0.5 mg PO BID [facility] Last Admin: 02/20/18 17:30 Dose: 0.5 mg Bupropion HCl (Wellbutrin Xl) 150 mg PO DAILY [facility] Last Admin: 02/20/18 09:52 Dose: 150 mg Heparin Sodium (Porcine) (Heparin) 5,000 units SC Q8 [facility] Last Admin: 02/20/18 21:04 Dose: 5,000 units Cefazolin Sodium/Dextrose (Ancef Iv 2 Gm Duplex) 2 gm in 50 mls @ 100 mls/hr IVPB Q8H [facility] PRN Reason: Protocol Last Admin: 02/20/18 17:30 Dose: 100 mls/hr Nystatin (Mycostatin Cream) 1 ea TOP TID [facility] Last Admin: 02/20/18 17:30 Dose: 1 applic Pantoprazole Sodium (Protonix Ec Tab) 40 mg PO DAILY [facility] Last Admin: 02/20/18 09:52 Dose: 40 mg Risperidone (Risperdal Tab) 2 mg PO HS [facility] Last Admin: 02/20/18 21:04 Dose: 2 mg - Labs Labs: 02/20/18 08:27 02/20/18 08:27 PT 11.9 SECONDS (9.7-12.2) 02/17/18 10:27 INR 1.1 02/17/18 10:27 APTT 35 SECONDS (21-34) H 02/17/18 10:27 Attending/Attestation - Attestation I have personally seen and examined this patient.: Yes I have fully participated in the care of the patient.: Yes I have reviewed all pertinent clinical information, including history, physical exam and plan: Yes Notes (Text): 02/20/18 21:53 Patient was seen and examined at 3:45 PM 02/20/18 571 A Upon FULL ROS patient offers NO complaints Also on Exam: Bilateral [place] legs show NO evidence of erythema or edema however there is still some warmth present Venous Dopplers are negative for Leg DVT Blood Cultures negative at 48 hours Plan: ID Dr. Velasco would like to keep patient on Cefazolin 2 gm IV Q8H till 02/22/18. However if she continues to be afebrile and blood cultures are negative at 72 hours on 02/21/18, then speak with Dr. Velasco to see if patient is ok to be discharge on PO antibiotic Keflex 500 mg PO Q12H to complete a 10 day course from the time of admission on 02/17/18. Jono Toro D.O.
--- NOTE | 2018-02-20 19:05 | CP.PCM.PN ---
Subjective - Date & Time of Evaluation Date of Evaluation: 02/20/18 Time of Evaluation: 10:00 - Subjective Subjective: cellulitis less cont to improve Objective - Vital Signs/Intake and Output Vital Signs (last 24 hours): Temp Pulse Resp BP Pulse Ox 99.0 F 82 20 132/87 98 02/20/18 15:30 02/20/18 15:30 02/20/18 15:30 02/20/18 15:30 02/20/18 15:30 - Medications Medications: Current Medications Benztropine Mesylate (Cogentin) 0.5 mg PO BID [facility] Last Admin: 02/20/18 17:30 Dose: 0.5 mg Bupropion HCl (Wellbutrin Xl) 150 mg PO DAILY [facility] Last Admin: 02/20/18 09:52 Dose: 150 mg Heparin Sodium (Porcine) (Heparin) 5,000 units SC Q8 [facility] Last Admin: 02/20/18 13:59 Dose: 5,000 units Cefazolin Sodium/Dextrose (Ancef Iv 2 Gm Duplex) 2 gm in 50 mls @ 100 mls/hr IVPB Q8H [facility] PRN Reason: Protocol Last Admin: 02/20/18 17:30 Dose: 100 mls/hr Nystatin (Mycostatin Cream) 1 ea TOP TID [facility] Last Admin: 02/20/18 17:30 Dose: 1 applic Pantoprazole Sodium (Protonix Ec Tab) 40 mg PO DAILY [facility] Last Admin: 02/20/18 09:52 Dose: 40 mg Risperidone (Risperdal Tab) 2 mg PO HS [facility] Last Admin: 02/19/18 21:16 Dose: Not Given - Labs Labs: 02/20/18 08:27 02/20/18 08:27 PT 11.9 SECONDS (9.7-12.2) 02/17/18 10:27 INR 1.1 02/17/18 10:27 APTT 35 SECONDS (21-34) H 02/17/18 10:27 Assessment and Plan (1) Cellulitis Status: Acute (2) Cellulitis Status: Acute
[2018-02-21] MEDS: ceFAZolin IV 2 gm in Dextrose 2 GM/50 ML BAG IVPB SCH ×2 (01:35→09:32)
[2018-02-21] MEDS: Pantoprazole 40 mg EC Tab PO SCH ×2 (07:26→09:33)
[2018-02-21 08:27] VITALS: BP 137/92; PULSE 103; RESP 103; TEMP 97.9
[2018-02-21 08:27] LABS: BASO % 0.5 % (0.0-2.0); EOS # 0.1 K/uL (0.0-0.7); EOS % 0.8 % (0.0-4.0); HEMOGLOBIN 11.8 g/dL (11.0-16.0); LYMPH # 1.5 K/uL (1.0-4.3); LYMPH % 16.8 % (20.0-40.0); MEAN CELL VOLUME 84.5 fL (81.0-99.0); MEAN CORPUSCULAR HEMOGLOBIN 28.4 pg (27.0-31.0); MEAN CORPUSCULAR HGB CONC 33.6 g/dL (33.0-37.0); MEAN PLATELET VOLUME 9.7 fL (7.2-11.7); MONO # 0.6 K/uL (0.0-0.8); MONO % 6.6 % (0.0-10.0); NEUT # 6.8 K/uL (1.8-7.0); NEUT % 75.3 % (50.0-75.0); NRBC % 0.1 % (0.0-2.0); RBC 4.16 Mil/uL (3.80-5.20); RED CELL DISTRIBUTION WIDTH 15.7 % (11.5-14.5)
[2018-02-21 08:45] LABS: ALB/GLOB RATIO 1.3 (1.0-2.1); ALBUMIN 4.4 g/dL (3.5-5.0); ALT/SGPT 111 U/L (9-52); AST/SGOT 110 U/L (14-36); BLOOD UREA NITROGEN 12 mg/dL (7-17); CALCIUM 9.5 mg/dl (8.6-10.4); GFR AFRICAN-AMERICAN > 60; GFR NON-AFRICAN AMERICAN > 60
[2018-02-21] MEDS: buPROPion 150 mg/24 Hours XL Tab PO SCH (09:32)
[2018-02-21] MEDS: Nystatin 100,000 Units/gm Cream(15 gm) TOP SCH (09:32)
--- NOTE | 2018-02-21 10:40 | CP.PCM.DIS ---
Provider - Provider Date of Admission: 02/17/18 11:36 Attending physician: Mily Khan MD Primary care physician: Dr. Khan Consults: Dr. Velasco Time Spent in preparation of Discharge (in minutes): 35 Diagnosis - Discharge Diagnosis (1) Cellulitis Status: Resolved (2) HTN (hypertension) Status: Chronic (3) Schizophrenia Status: Chronic Hospital Course - Lab Results Lab Results: Micro Results 02/17/18 09:50 Blood Blood Culture - Preliminary NO GROWTH AFTER 3 DAYS 02/17/18 09:50 Blood Blood Culture - Preliminary NO GROWTH AFTER 3 DAYS Most Recent Lab Values WBC 9.0 K/uL (4.8-10.8) 02/21/18 08:07 RBC 4.16 Mil/uL (3.80-5.20) 02/21/18 08:07 Hgb 11.8 g/dL (11.0-16.0) 02/21/18 08:07 Hct 35.2 % (34.0-47.0) 02/21/18 08:07 MCV 84.5 fL (81.0-99.0) 02/21/18 08:07 MCH 28.4 pg (27.0-31.0) 02/21/18 08:07 MCHC 33.6 g/dL (33.0-37.0) 02/21/18 08:07 RDW 15.7 % (11.5-14.5) H 02/21/18 08:07 Plt Count 285 K/uL (130-400) 02/21/18 08:07 MPV 9.7 fL (7.2-11.7) 02/21/18 08:07 Neut % (Auto) 75.3 % (50.0-75.0) H 02/21/18 08:07 Lymph % (Auto) 16.8 % (20.0-40.0) L 02/21/18 08:07 Karnes % (Auto) 6.6 % (0.0-10.0) 02/21/18 08:07 Eos % (Auto) 0.8 % (0.0-4.0) 02/21/18 08:07 Baso % (Auto) 0.5 % (0.0-2.0) 02/21/18 08:07 Neut # (Auto) 6.8 K/uL (1.8-7.0) 02/21/18 08:07 Lymph # (Auto) 1.5 K/uL (1.0-4.3) 02/21/18 08:07 Karnes # (Auto) 0.6 K/uL (0.0-0.8) 02/21/18 08:07 Eos # (Auto) 0.1 K/uL (0.0-0.7) 02/21/18 08:07 Baso # (Auto) 0.0 K/uL (0.0-0.2) 02/21/18 08:07 PT 11.9 SECONDS (9.7-12.2) 02/17/18 10:27 INR 1.1 02/17/18 10:27 APTT 35 SECONDS (21-34) H 02/17/18 10:27 pO2 37 mm/Hg (30-55) 02/17/18 10:29 VBG pH 7.40 (7.32-7.43) 02/17/18 10:29 VBG pCO2 44 mmHg (40-60) 02/17/18 10:29 VBG HCO3 25.8 mmol/L 02/17/18 10:29 VBG Total CO2 28.7 mmol/L (22-28) H 02/17/18 10:29 VBG O2 Sat (Calc) 77.7 % (40-65) H 02/17/18 10:29 VBG Base Excess 2.0 mmol/L (0.0-2.0) 02/17/18 10:29 VBG Potassium 3.4 mmol/L (3.6-5.2) L 02/17/18 10:29 Sodium 142.0 mmol/l (132-148) 02/17/18 10:29 Chloride 108.0 mmol/L (98-107) H 02/17/18 10:29 Glucose 94 mg/dl (65-105) 02/17/18 10:29 Lactate 1.1 mmol/L (0.7-2.1) 02/17/18 10:29 Sodium 141 mmol/L (132-148) 02/21/18 08:07 Potassium 3.9 mmol/L (3.6-5.2) 02/21/18 08:07 Chloride 103 mmol/L (98-107) 02/21/18 08:07 Carbon Dioxide 26 mmol/L (22-30) 02/21/18 08:07 Anion Gap 16 (10-20) 02/21/18 08:07 BUN 12 mg/dL (7-17) 02/21/18 08:07 Creatinine 0.7 mg/dL (0.7-1.2) 02/21/18 08:07 Est GFR ( Amer) > 60 02/21/18 08:07 Est GFR (Non-Af Amer) > 60 02/21/18 08:07 Random Glucose 118 mg/dL (65-105) H 02/21/18 08:07 Hemoglobin A1c 6.3 % (4.2-6.5) 02/18/18 06:34 Calcium 9.5 mg/dl (8.6-10.4) 02/21/18 08:07 Phosphorus 3.9 mg/dL (2.5-4.5) 02/21/18 08:07 Magnesium 2.0 mg/dL (1.6-2.3) 02/21/18 08:07 Total Bilirubin 0.4 mg/dL (0.2-1.3) 02/21/18 08:07 AST 110 U/L (14-36) H D 02/21/18 08:07 ALT 111 U/L (9-52) H D 02/21/18 08:07 Alkaline Phosphatase 103 U/L (38-126) 02/21/18 08:07 Total Protein 7.8 g/dL (6.3-8.3) 02/21/18 08:07 Albumin 4.4 g/dL (3.5-5.0) 02/21/18 08:07 Globulin 3.4 gm/dL (2.2-3.9) 02/21/18 08:07 Albumin/Globulin Ratio 1.3 (1.0-2.1) 02/21/18 08:07 Triglycerides 93 mg/dL (0-149) 02/18/18 06:34 Cholesterol 163 mg/dL (0-199) 02/18/18 06:34 LDL Cholesterol Direct 106 mg/dL (0-129) 02/18/18 06:34 HDL Cholesterol 33 mg/dL (30-70) 02/18/18 06:34 Venous Blood Potassium 3.4 mmol/L (3.6-5.2) L 02/17/18 10:29 Hepatitis A IgM Ab Negative (NEGATIVE) 02/18/18 06:34 Hep Bs Antigen Negative (NEGATIVE) 02/18/18 06:34 Hep B Core IgM Ab Negative (NEGATIVE) 02/18/18 06:34 Hepatitis C Antibody Negative (NEGATIVE) 02/18/18 06:34 HIV 1&2 Antibody Screen Negative (NEGATIVE) 02/18/18 06:34 - Hospital Course Hospital Course: "Patient is a 52 year old F with PMHx of Schizophrenia, HTN, IGT, depression, anxiety who presents today for lower extremity swelling and itching for two weeks. Patient denies any pain in her legs. Patient does not know of any inciting events and denies any trauma, bites, or falls. Patient was placed on antibiotics by her PMD Dr. Khan which only minimally helped the swelling. Patient does not know what medications she takes, but does know she gets them from [facility]. Patient denies any chest pain, shortness of breath, abdominal pain, nausea, vomiting, constipation, or diarrhea." Patient was admitted for lower extremity cellulitis. Patient started on Ancef 2gm q8h upon admission. Patient cellulitis significantly improved. Upon discharge patient no longer had any burning or itching and was ambulating well. Patient was prescribed Keflex to take by mouth for 5 additional days. Patient's liver enzymes were slightly elevated. Hepatitis panel and HIV 1 and 2 were negative. Patient's antipsychotic medications combined with antibiotics were most likely the cause in the rise in liver enzymes. Patient will need to follow up with Dr. Khan to get repeat labs within one week. Patient continued on her home medications for schizophrenia and depression. Patient had no SI or HI during hospital course. Patient continues to have IGT. Patient's HGA1C was 6.3. Patient will need to work on her diet as an outpatient. Patient was not given any medications for her history of hypertension as her pharmacy said she has no been prescribed them recently. Patient's blood pressure was stable without any medications during hospital course. This is a summary of the patient's hospital course, please see chart for full details. Discharge Exam - Head Exam Head Exam: NORMAL INSPECTION, NORMOCEPHALIC - Eye Exam Eye Exam: EOMI, Normal appearance - ENT Exam ENT Exam: Mucous Membranes Moist - Respiratory Exam Respiratory Exam: Clear to PA & Lateral, NORMAL BREATHING PATTERN - Cardiovascular Exam Cardiovascular Exam: REGULAR RHYTHM, RRR, +S1, +S2 - GI/Abdominal Exam GI & Abdominal Exam: Normal Bowel Sounds, Soft. absent: Tenderness - Extremities Exam Extremities exam: normal inspection Additional comments: erythem and edema resolved - Neurological Exam Neurological exam: Alert, Oriented x3 - Psychiatric Exam Psychiatric exam: Flat Affect, Normal Mood - Skin Skin Exam: Normal Color, Warm Discharge Plan - Discharge Medications Prescriptions: Cephalexin [Keflex] 500 mg PO Q12H #10 capsule - Follow Up Plan Condition: GOOD Disposition: HOME/ ROUTINE Instructions: Cellulitis (Skin Infection), Adult (DC) Additional Instructions: Patient stable for discharge as per Dr. Abarca and Dr. Velasco. Patient to continue all home medications. Patient to follow up with primary doctor, Dr. Khan within one week. Patient to take Keflex 500mg by mouth twice a day for 5 days. Patient to return to emergency room if symptoms return. Patient explained instructions who understands and agrees. Referrals: Mily Khan MD [Staff Provider] - Siddharth Velasco MD [Staff Provider] -
[2018-02-22 05:52] VITALS: O2SAT 99
== END 2018-02-21 13:26 | disposition home or self-care (01) | DRG 277 ==
LOC: C.ER 09:25 → C.9E 11:36 → C.5S 11:58
PROVIDERS: ADMIT Internal Medicine Pulmonary Disease; ATTEND Internal Medicine Pulmonary Disease
DX: L03.115 Cellulitis of right lower limb (principal); L03.116 Cellulitis of left lower limb; R23.3 Spontaneous ecchymoses; I10 Essential (primary) hypertension; F20.9 Schizophrenia, unspecified; F32.9 Major depressive disorder, single episode, unspecified

== ENCOUNTER 2018-05-03 15:48 | Emergency (ER) | payer MEDICAID ==
[2018-05-03 15:48] VITALS: BMI 33.3
[2018-05-03 16:18] VITALS: BP 160/93; PULSE 97; RESP 18; TEMP 99; O2SAT 96
--- NOTE | 2018-05-03 17:39 | C.PDOC ---
History Of Present Illness Patient brought to ER by daughter, is tearful and complaining of discomfort in her breasts. As per daughter, patient always gets this way when she stops taking her psychiatric meds, last time she took then was thursday. Patient is supposed to take Zyprexa and Klonopin. Patient denies any abdominal pain, chest pain, SOB, fever, SI/HI. Time Seen by Provider: 05/03/18 16:24 Chief Complaint (Nursing): Abdominal Pain History Per: Patient, Family History/Exam Limitations: no limitations Onset/Duration Of Symptoms: Days (3 days) Current Symptoms Are (Timing): Still Present Past Medical History Reviewed: Historical Data, Nursing Documentation, Vital Signs Vital Signs: Last Vital Signs Temp 99 F 05/03/18 16:12 Pulse 97 H 05/03/18 16:12 Resp 18 05/03/18 16:12 BP 160/93 H 05/03/18 16:12 Pulse Ox 96 05/03/18 16:12 - Medical History PMH: Depression, HTN, Schizophrenia Family History: States: No Known Family Hx - Social History Hx Alcohol Use: No Hx Substance Use: No - Immunization History Hx Tetanus Toxoid Vaccination: No Hx Influenza Vaccination: No Hx Pneumococcal Vaccination: No Review Of Systems Constitutional: Negative for: Fever, Chills Cardiovascular: Positive for: Other ("brest discomfort"). Negative for: Chest Pain, Palpitations Respiratory: Negative for: Cough, Shortness of Breath Gastrointestinal: Negative for: Abdominal Pain Skin: Negative for: Rash Neurological: Negative for: Headache, Dizziness Psych: Positive for: Other (paranoia, anxiety ) Physical Exam - Physical Exam Appears: Non-toxic, In Acute Distress (tearful, anxious ) Head: Atraumatic, Normacephalic Eye(s): bilateral: Normal Inspection, PERRL, EOMI Oral Mucosa: Moist Cardiovascular: Rhythm Regular, Other (breats nontender and normal in appearance) Respiratory: Normal Breath Sounds, No Rales, No Rhonchi, No Wheezing Gastrointestinal/Abdominal: Normal Exam, Bowel Sounds, Soft, No Tenderness Neurological/Psych: Oriented x3 Gait: Steady ED Course And Treatment O2 Sat by Pulse Oximetry: 96 (RA) Pulse Ox Interpretation: Normal Progress Note: Spoke with patient and aughter at length. Patient states some of her medications are "bad for her" and "cause her damage". Medications reviewed, and offending medicatons are Tessalon and Keflex. Patient denies any current infections/cough/fever. Patient instructed to stop those medications, Iris was able to convince her to take her Zyprexa 10mg and Klonopin 0.5mg. First dose given in the ED, and patient states she will take them as recommended. She has follow up appt with her psychiatrist this thursday. Patient and daughter are comfortable being discharged home, and were instructed to return to ED if patient has any concerning symptoms. Disposition Counseled Patient/Family Regarding: Diagnosis, Need For Followup - Disposition Referrals: Mily Khan MD [Staff Provider] - Disposition: HOME/ ROUTINE Disposition Time: 17:45 Condition: STABLE Additional Instructions: FOLLOW UP WITH YOUR PSYCHIATRIST ON THURSDAY SCHEDULED TAKE YOUR MEDICATIONS INSTRUCTED RETURN TO EMERGENCY ROOM IF SYMPTOMS WORSEN SEGUIRSE CON BILLY PSIQUIATRA EL MIR[place]ES SEGN HORARIO TOME ARUN MEDICAMENTOS YVONNE SE INDICA VUELVA A LA VANESSA DE EMERGENCIA SI LOS SNTOMAS SE HACEN PEOR Forms: [employer] (Thai), Gen Discharge Inst Armenian Print Language: SPA - POA Present On Arrival: None - Clinical Impression Clinical Impression: Evaluation by medical service required, Noncompliance with medication regimen
== END 2018-05-03 18:28 | disposition home or self-care (01) ==
LOC: C.ER 15:48
DX: Z91.14 Patient's other noncompliance with medication regimen (principal); F20.9 Schizophrenia, unspecified; I10 Essential (primary) hypertension; F32.9 Major depressive disorder, single episode, unspecified